=== PATIENT | female | born 1995 | race Caucasian/White ===

== ENCOUNTER → 2017-11-17 | Outpatient (CLI) | payer SELFPAY ==
[~2017-11-17] MED LIST: AMOX250S5 PO; GADOBUTROL 7.5 MMOL/7.5 ML (GADAVIST) VIAL IV ONE; HYDR118S PO
--- NOTE | 2017-11-17 14:46 | Diagnostic Imaging Report ---
PROCEDURE: MRI pelvis with and without contrast. TECHNIQUE: Multiplanar, multisequence MRI of the pelvis was performed with and without contrast. INDICATION: Right lower quadrant mass. COMPARISON: There are no prior studies available for comparison. According to the patient, she has had a prior ultrasound and CT examination at another facility which failed to show any sign of an acute abnormality or of a mass lesion involving the pelvis. FINDINGS: On this study, there is no mass or free fluid collection within the pelvis. The uterus does not appear to be enlarged. The endometrial lining is thickened measuring 13 mm (normal 5 mm or less). This finding is nonspecific however. Correlation with the patient's menstrual cycle would be recommended. There are a few subcentimeter follicles associated with both ovaries. There is no abnormal signal arising from the osseous structures to suggest bone edema or fracture. IMPRESSION: 1. There is no discrete solid mass evident in the right lower quadrant. 2. There is no acute abnormality identified. 3. There are few subcentimeter follicles associated with both ovaries. Dictated by: Dictated on workstation # [id number]
== END ==
LOC: RAD 12:47
PROVIDERS: ATTEND Nurse Practitioner
DX: N83.8 Other noninflammatory disorders of ovary, fallopian tube and broad ligament (principal); R10.31 Right lower quadrant pain
CPT/HCPCS: 72197

== ENCOUNTER 2017-12-07 05:38 | Outpatient (CLI) | payer OTHER ==
[~2017-12-07] VITALS: Ht 152.4 cm; Wt 54.4 kg
[~2017-12-07 05:38] MED LIST changes: -GADOBUTROL 7.5 MMOL/7.5 ML (GADAVIST) VIAL IV ONE
[2017-12-07] MEDS ORDERED: ALPR0.5T7 PO (10:47)
[2017-12-07] MEDS ORDERED: METH5TAB4 PO (10:47)
== END 2017-12-07 10:54 | disposition home or self-care (01) ==
LOC: PREOP 05:38
PROVIDERS: ATTEND Obstetrics & Gynecology
DX: Z01.818 Encounter for other preprocedural examination (principal)

== ENCOUNTER 2017-12-10 08:50 | Day surgery (SDC) | payer OTHER ==
[~2017-12-10] VITALS: Ht 152.4 cm; Wt 54.4 kg
[~2017-12-10 08:50] MED LIST changes: +ALPR0.5T7 PO; +METH5TAB4 PO
--- OUTSIDE RECORDS SUMMARY | 2017-12-10 08:53 | XMS REPORT ---
Author CARYN Cardenas [facility] eClinicalWorks Address Unknown Phone Unavailable Care Team Providers Care Aerial Photograph Interpreter Name Role Phone CARYN WALKER CP Unavailable Allergies No Known Allergies Problems Problem Type Condition Code Onset Dates Condition Status Assessment Visit for TB skin test Z11.1 Active Medications No Known Medications Procedures Procedure Coding System Code Date TB INTRADERMAL TEST CPT-4 80203 Nov 20, 2015 Results No Known Results Summary Purpose eClinicalWorks Submission
--- OUTSIDE RECORDS SUMMARY | 2017-12-10 08:53 | XMS REPORT ---
Author Author SRINIVAS MARC Organization [facility] Address [address] [place] [address] Care Team Providers Care Circus Train Supervisor Name Role Phone SRINIVAS MARC Unavailable PROBLEMS Unknown Problems ALLERGIES Substance Reaction Event Type Date Status SulfADIAZINE Unknown Drug Allergy Aug, Active ENCOUNTERS Encounter Location Date Diagnosis [place] [id number] [phone] Aug, Weight loss R63.4 [place] [id number] [place] [phone] Nov, Visit for TB skin test Z11.1 [place] [id number] [place] [phone] Nov, [place] [id number] [place] [id number] [place] [phone] Nov, IMMUNIZATIONS No Known Immunizations SOCIAL HISTORY Never Assessed REASON FOR VISIT found mass on stomach - In June found a mass on RLQ. It is not painful she states that it is pushing on something that makes it uncomfortable. She works in a f[employer] and states it is making her hips and backs of her thighs hurt. Feels weighted and bloated in the abdomen. Menses are regular and usually is always on time. Now it is messed up and is coming earlier and earlier. She is worried and states there is no way she could be . - Stephanie ANGELES PLAN OF CARE Activity Details Follow Up prn Reason: VITAL SIGNS Height 61.0 in 2016-08-28 Weight 117.0 lbs 2016-08-28 Temperature 98.5 degrees Fahrenheit 2016-08-28 Heart Rate 88 bpm 2016-08-28 Respiratory Rate 18 2016-08-28 BMI 22.10 kg/m2 2016-08-28 Blood pressure systolic 114 mmHg 2016-08-28 Blood pressure diastolic 56 mmHg 2016-08-28 MEDICATIONS Medication Instructions Dosage Frequency Start Date End Date Duration Status Ritalin 10 MG Orally Twice a day 1 tablet 12h Active RESULTS No Results PROCEDURES Procedure Date Ordered Result Body Site COMPLETE CBC W/AUTO DIFF WBC August 28, 2016 COMPREHEN METABOLIC PANEL August 28, 2016 VENIPUNCT, ROUTINE* August 28, 2016 ASSAY THYROID STIM HORMONE August 28, 2016 INSTRUCTIONS MEDICATIONS ADMINISTERED No Known Medications MEDICAL (GENERAL) HISTORY Type Description Date Surgical History Kidney Stone stent place and removed. Surgical History Lithotripsy Hospitalization History Surgery Hospitalization History Animal Bite that causes cellulitis 05/2016
[2017-12-10 09:30] VITALS: BP 121/75
[2017-12-10] MEDS: LACTATED RINGERS 1,000 ML IV PRN ×2 (09:30→12:30)
[2017-12-10 09:50] LABS: BASOPHILS % (AUTO) 1 % (0-10); EOSINOPHILS # (AUTO) 0.2 10^3/uL (0.0-0.3); EOSINOPHILS % (AUTO) 7 % (0-10); HEMATOCRIT 39 % (35-52); HEMOGLOBIN 13.7 G/DL (11.5-16.0); LYMPHOCYTES % (AUTO) 27 % (12-44); MEAN CORPUSCULAR HEMOGLOBIN 32 PG (25-34); MEAN CORPUSCULAR HGB CONC 35 G/DL (32-36); MEAN CORPUSCULAR VOLUME 90 FL (80-99); MEAN PLATELET VOLUME 10.8 FL (7.4-10.4); MONOCYTES # (AUTO) 0.3 X 10^3 (0.0-1.0); MONOCYTES % (AUTO) 8 % (0-12); NEUTROPHILS # (AUTO) 2.1 X 10^3 (1.8-7.8); NEUTROPHILS % (AUTO) 58 % (42-75); PLATELET COUNT 220 10^3/uL (130-400); RED BLOOD COUNT 4.35 10^6/uL (4.35-5.85); RED CELL DISTRIBUTION WIDTH 12.1 % (10.0-14.5); WHITE BLOOD COUNT 3.6 10^3/uL (4.3-11.0)
[2017-12-10] MEDS ORDERED: D5 LR IV SOLUTION 1,000 ML IV SCH (11:58)
[2017-12-10] MEDS ORDERED: HYDROcodone/APAP 5 MG/325 MG (LORTAB) TAB PO PRN (12:00)
[2017-12-10] MEDS ORDERED: KETOROLAC 30 MG/ML VIAL IVP ONE (12:00)
[2017-12-10] MEDS ORDERED: ONDANSETRON 4 MG/2 ML (SDV) Z0FRAN IVP PRN ×2 (12:00→13:45)
--- NOTE | 2017-12-10 12:00 | Discharge Inst-Women's Service ---
Discharge Inst-Women's Serv Depart Medication/Instructions New, Converted or Re-Newed RX: RX on Chart Consults/Follow Up Additional Follow Up: Yes Orders/Referrals DR. Coates in 2-3 weeks Activity Activity: Activity as Tolerated Driving Instructions: No Driving for 1 Week NO SMOKING: NO SMOKING Nothing Inside Vagina: No Douching, No Fontanelle, No Tampons Diet Discharge Diet: No Restrictions Symptoms to Report to : Bleeding Excessive, Pain Increased, Fever Over 101 Degrees F, Vaginal Bleeding Increase, Questions/Concerns For Any Problems or Questions: Contact Your Physician Skin/Wound Care Infection Signs and Symptoms: Increased Redness, Foul Odor of Wound, Increased Drainage, Skin Itchy or Has a Rash, Increased Swelling, Temperature Above 101 F Stitches/Ironside/Dermabond: Dermabond, Care of Stitches Bathing Instructions: RK Joseph DO Dec 10, 2017 12:00
[2017-12-10] MEDS ORDERED: IBUP-1773 PO (12:01)
[2017-12-10] MEDS ORDERED: ACHD5005 PO (12:01)
[2017-12-10] MEDS ORDERED: ROCURONIUM 10 MG/ML 5 ML SYRINGE IV ONE (12:03)
[2017-12-10] MEDS ORDERED: SEVOFLURANE (ULTANE) 15 ML INHAL SOLN ONE ×5 (12:03→13:10)
[2017-12-10] MEDS ORDERED: LIDOCAINE PF 2% 5 ML (XYLOCAINE) VIAL ONE (12:03)
[2017-12-10] MEDS ORDERED: MIDAZOLAM 2 MG/2 ML (VERSED) VIAL ONE (12:03)
[2017-12-10] MEDS ORDERED: fentaNYL INJECTION 100 MCG/2 ML AMP ONE (12:03)
[2017-12-10] MEDS ORDERED: DEXAMETHASONE 10 MG/ML (DECADRON) 1 ML VIAL ONE (12:03)
[2017-12-10] MEDS ORDERED: proPOfol 200 MG/20 ML (DIPRIVAN) VIAL IV ONE (12:03)
[2017-12-10] MEDS ORDERED: ONDANSETRON 4 MG/2 ML (SDV) Z0FRAN ONE (12:03)
[2017-12-10] MEDS ORDERED: BUPIVACAINE 0.25% 30 ML (SENSORCAINE) VIAL ONE (12:14)
[2017-12-10] MEDS ORDERED: NEOSTIGMINE 1 MG/ML 5 ML SYRINGE ONE (13:14)
[2017-12-10] MEDS ORDERED: GLYCOPYRROLATE 0.2 MG/ML (ROBINUL) 2 ML VIAL ONE (13:14)
[2017-12-10] MEDS ORDERED: morphine INJ 10 MG/ML 1ML (SYR OR VIAL) ONE (13:39)
[2017-12-10] MEDS ORDERED: HYDROmorphone 2 MG/ML VIAL (DILAUDID) IV ONE (13:45)
[2017-12-10] MEDS ORDERED: morphine INJ 10 MG/ML 1ML (SYR OR VIAL) IVP ONE ×2 (13:45)
[2017-12-10] MEDS ORDERED: fentaNYL INJECTION 100 MCG/2 ML AMP IVP ONE (13:45)
[2017-12-10 14:20] VITALS: BP 105/74
--- NOTE | 2017-12-10 14:26 | Anesthesia-General Post-Op ---
General Patient Condition Mental Status/LOC: Same as Preop Cardiovascular: Satisfactory Nausea/Vomiting: Absent Respiratory: Satisfactory Pain: Controlled Complications: Absent Post Op Complications Complications None Follow Up Care/Instructions Patient Instructions None needed. Anesthesia/Patient Condition Patient Condition Patient is doing well, no complaints, stable vital signs, no apparent adverse anesthesia problems. No complications reported per nursing. DELMIS MATHEWS CRNA Dec 10, 2017 14:25
[2017-12-10] MEDS ORDERED: HYDROcodone/APAP 5 MG/325 MG (LORTAB) TAB ONE (14:43)
[2017-12-10 14:50] VITALS: BP 101/72
[2017-12-10 15:20] VITALS: BP 97/67
[2017-12-10 15:30] VITALS: BP 97/67
--- NOTE | 2017-12-10 22:22 | OPERATIVE REPORT ---
DATE OF SERVICE: PREOPERATIVE DIAGNOSES: A 22-year-old female with right lower quadrant and right lateral discomfort and abdominal pain. POSTOPERATIVE DIAGNOSES: 1. A 22-year-old female with right lower quadrant and right lateral discomfort and abdominal pain. 2. Peritoneal adhesions. PROCEDURE: Laparoscopic lysis of adhesions. SURGEON: Rk Mcdonnell DO ANESTHESIA: General endotracheal. ESTIMATED BLOOD LOSS: Minimal. URINE OUTPUT: 200 mL. FLUIDS: 1000 mL of lactated Ringer's solution. FINDINGS: Grossly normal appearing uterus, bilateral fallopian tubes, adhesion of the distal ampullary portion of the left fallopian tube to the posterior aspect of the broad ligament at the insertion of the base of the cervix and the uterosacral ligament. There were also adhesions of the greater omentum to the right lateral pelvic sidewall. SPECIMENS SENT: None. INDICATIONS FOR PROCEDURE: This 22-year-old female is a consultation to me from Elizabeth Palma, our nurse practitioner, who had initially seen the patient for an annual examination who had described this ongoing pelvic discomfort and pain. She had undergone ultrasound, CT and MRI, by the time she was sent to my consultation. Once I saw the patient, we are able to feel a nodularity almost like a muscle spasm that was in the right abdomen, especially on pelvic exam; however, otherwise I was not able to appreciate any fascial defect or any abdominal wall defect. I discussed with the patient the potential for endometriosis or adhesions; however, she has not had previous abdominal surgery, she had had a right ureteral stent placement. Risk of laparoscopy was reviewed with the patient; however, more definitive look could be taken this way. Risks of bleeding, infection, damage to surrounding structures including but not limited to bowel, bladder, ureter, kidneys, postoperative and preoperative expectations, postop recovery timeframe, risk from anesthesia and even were all discussed. After everything was discussed and the patient's questions were answered, she was agreeable to proceed with laparoscopy and she wants an answer. Consent was obtained. The patient was then taken to the operating room. OPERATIVE REPORT IN DETAIL: Once in the operating room, general anesthesia was found to be adequate, placed in dorsal lithotomy position and prepped and draped in normal sterile fashion. A Camacho catheter was placed in sterile technique. A weighted speculum inserted to the patient's vagina. A right angle retractor was used to visualize the cervix, which was grasped at 12 o'clock position using long Allis clamp. I then gently sound the uterine cavity and found to be 8 cm and then gently dilated the cervix using Hegar dilators to a maximum dilatation of approximately 4 mm, at which point I placed the Kronner uterine manipulator into the uterine cavity deploying the balloon and excellent uterine manipulation is appreciated on bimanual exam at that point. All other instruments were removed from the patient's vagina at that point. Change of gloves was performed and I took my attention to the abdomen where infraumbilically I infiltrate the area using 0.25% Marcaine to make a 5 mm incision, directed Veress needle through the incision until intraperitoneal placement was confirmed using saline drop test. I opening pressure of 3 mmHg was noted. I proceeded to maximum pressure of 15 mmHg, at which point I removed the Veress needle and introduced a 5 mm blunt trocar. Once this was in place, I am able to confirm intraperitoneal placement using the laparoscope. I had the patient placed in steep Trendelenburg and made to visualize all of the anatomy described in my findings above. I take down the adhesions after placing the suprapubic trocar in a similar fashion with a 5 mm incision a 5 mm trocar. Once the adhesions were taken down, using the EndoShears, hemostasis was achieved using the cautery from the EndoShears. I then copiously irrigated the pelvis with normal saline and the upper abdomen using normal saline. There was active bleeding noted from any of my dissection planes. I then removed the suprapubic trocar under direct visualization of the laparoscope. The infraumbilical trocar was left in place to release insufflation and to introduce 10 mL of 0.25% Marcaine for postoperative pain management. I then removed this trocar as well and the skin reapproximated using Dermabond. A Kronner uterine manipulator and Camacho catheter were removed. The patient tolerated the procedure well and sent to recovery in stable condition. Lap and sponge counts were correct at the end of the procedure. Instrument counts were correct as well. Job ID: [id number] DocumentID: [id number] Dictated Date: 12/10/2017 13:42:21 Calciner Operator Helper Date: 12/10/2017 22:22:12 Dictated By: RK MCDONNELL DO
== END 2017-12-10 15:30 | disposition home or self-care (01) ==
LOC: SDC 08:50
PROVIDERS: ATTEND Obstetrics & Gynecology
DX: N73.6 Female pelvic peritoneal adhesions (postinfective) (principal); Z11.2 Encounter for screening for other bacterial diseases; F32.9 Major depressive disorder, single episode, unspecified; F17.210 Nicotine dependence, cigarettes, uncomplicated; Z87.442 Personal history of urinary calculi
CPT/HCPCS: 36415; 84703; 85025; 86850; 86900; 86901; 87081; 94664

== ENCOUNTER 2019-01-07 16:36 | Emergency (ER) | payer MEDICAID, OTHER ==
[~2019-01-07] VITALS: Ht 158.7 cm; Wt 59.4 kg
[~2019-01-07 16:36] MED LIST changes: +ACHD5005 PO; +IBUP-1773 PO
--- NOTE | 2019-01-07 17:10 | ED GI ---
General Chief Complaint: Abdominal/GI Problems Stated Complaint: NAUSEA; ABD PAIN Nursing Triage Note: Pt presents to ED per POV reporting 8 weeks and developing nausea this a.m. Pt reports she has not vomited and wished she could. Pt had a diarrhea episode just CAN RUNNER. Pt has not had any Rx from [facility] for morning sickness. Sepsis Screen: No Definite Risk Source of Information: Patient, Family Exam Limitations: No Limitations History of Present Illness Date Seen by Provider: Jan 07, 2019 Time Seen by Provider: 16:55 Initial Comments Stomach upset and nausea without vomiting, onset 10 am today. Archbold fine this morning and yesterday, no recent illness or sick contacts. Normal BM's without constipation. No fever or chills. No lower abdominal or pelvic pain or cramping. No vaginal bleeding. @ 8 wks Allergies and Home Medications Allergies Coded Allergies: Sulfa (Sulfonamides) (Unverified Allergy, RASH,SOB, 10/29/09) Home Medications Vit W-Ca,Fe,FA(<1 mg) 1 Each Tablet, 1 EACH PO DAILY, (Reported) Patient Home Medication List Home Medication List Reviewed: Yes Review of Systems Review of Systems Constitutional: see HPI, malaise EENTM: No Ear Pain, No Nose Pain, No Throat Pain Respiratory: No Symptoms Reported; Denies Cough, Denies Shortness of Air Cardiovascular: No Symptoms Reported; Denies Chest Pain Gastrointestinal: Abdominal Pain (upper abdomen, upset stomach); Denies Constipated, Denies Diarrhea, Denies Difficulty Swallowing; Nausea; Denies Vomiting Genitourinary: Denies Burning, Denies Discharge, Denies Pain Musculoskeletal: No back pain, No joint pain Skin: No change in color, No rash Past Ywzjohz-Ucbpbn-Wyvfas Hx Past Med/Social Hx: Reviewed Nursing Past Med/Soc Hx Patient Social History Alcohol Beverage of Choice: Beer, Whiskey Type Used: Cigarettes Recent Foreign Travel: No Contact w/Someone Who Travel: No Recent Infectious Disease Expo: No Recent Hopitalizations: No Seasonal Allergies Seasonal Allergies: Yes Past Medical History Tonsillectomy : Yes Expected Date of Delivery: Aug 15, 2019 Hx : 1 Hx Para: 0 Reproductive Disorders: Yes (RLQ pain, CPP) Sexually Transmitted Disease: No Kidney Stones Anxiety, Depression Physical Exam Vital Signs Vital Signs - First Documented 01/07/19 16:45 Temp 36.7 Pulse 113 Resp 20 B/P (MAP) 122/69 (86) Pulse Ox 97 O2 Delivery Room Air Capillary Refill : Less Than 3 Seconds Height/Weight/BMI Height: 5'0.00" Weight: 120lbs. 0.0oz. 54.029982qs; 23.00 BMI Method: General Appearance: WD/WN, no apparent distress HEENT: normal ENT inspection, pharynx normal Respiratory: chest non-tender, lungs clear, normal breath sounds Cardiovascular: regular rate, rhythm, no edema, no gallop Gastrointestinal: normal bowel sounds, soft, no organomegaly, no pulsatile mass; No distended, No guarding, No rebound; tenderness (mild epigastric); No hepatomegaly, No spleenomegaly Neurologic/Psychiatric: alert, normal mood/affect Skin: normal color, warm/dry Progress/Results/Core Measures Results/Orders My Orders Orders - DARYA POWERS DO Antacid Suspension (Mylanta Suspension (01/07/19 17:15) Medications Given in ED Current Medications Medications Dose Ordered Sig/Gibran Route Start Time Stop Time Status Last Admin Dose Admin Al Hydrox/Mg Hydrox/Simethicone 30 ml ONCE ONCE PO 01/07/19 17:15 01/07/19 17:16 DC 01/07/19 17:13 30 ML Vital Signs/I&O 01/07/19 16:45 Temp 36.7 Pulse 113 Resp 20 B/P (MAP) 122/69 (86) Pulse Ox 97 O2 Delivery Room Air Blood Pressure Mean: 86 POS Progress Progress Note : Progress Note feeling much better after maalox and ice chips. Ready to go home. Departure Impression Primary Impression: Epigastric abdominal pain Additional Impression: Nausea/vomiting in Disposition: 01 HOME, SELF-CARE Condition: Improved Departure-Patient Inst. Referrals: SELF,PATI GOODRICH (PCP/Family) Primary Care Physician Patient Instructions: Nausea and Vomiting of (DC) DARYA POWERS DO Jan 07, 2019 17:10 POS
[2019-01-07] MEDS ORDERED: VNL37.5T (17:11)
[2019-01-07] MEDS ORDERED: PREN-8 PO (17:11)
[2019-01-07] MEDS ORDERED: ANTACID SUSP 30 ML UDC (MYLANTA) PO ONE (17:15)
[2019-01-07 18:00] VITALS: BP 120/64
--- OUTSIDE RECORDS SUMMARY | 2019-02-02 15:14 | XMS REPORT | Continuity of Care Document ---
Author Organization Unknown Address Unknown Phone Unavailable Allergies There is no data. Medications There is no data. Problems There is no data. Procedures There is no data. Results Test Result Range CULTURE, URINE - 10/05/18 14:02 CULTURE, URINE, ROUTINE SEE NOTE NRG CBC - 12/07/18 11:16 WHITE BLOOD CELL COUNT 4.4 Thousand/uL 3 .8-10.8 RED BLOOD CELL COUNT 4.13 Million/uL 3.8 0-5.10 HEMOGLOBIN 12.8 g/dL 11.7-15.5 HEMATOCRIT 38.8 % 35.0-45.0 MCV 93.9 fL 80.0-100.0 MCH 31.0 pg 27.0-33.0 MCHC 33.0 g/dL 32.0-36.0 RDW 12.0 % 11.0-15.0 PLATELET COUNT 202 Thousand/uL 140-400 MPV 11.2 fL 7.5-12.5 ABSOLUTE NEUTROPHILS 3124 cells/uL 1500- 7800 ABSOLUTE LYMPHOCYTES 880 cells/uL 850-39 00 ABSOLUTE MONOCYTES 387 cells/uL 200-950 ABSOLUTE EOSINOPHILS 0 cells/uL 15-500 ABSOLUTE BASOPHILS 9 cells/uL 0-200 NEUTROPHILS 71 % NRG LYMPHOCYTES 20.0 % NRG MONOCYTES 8.8 % NRG EOSINOPHILS 0.0 % NRG BASOPHILS 0.2 % NRG TEST, SERUM (QUAL) - 12/07/18 11:16 HCG, TOTAL, QL POSITIVE See Note: Encounters ACCT No. Visit Date/Time Discharge Status Pt. Type Provider Facility Loc./Unit Complaint [id number] 11/20/2018 16:05:00 11/20/2018 23:59:5 9 CLS Outpatient SELF, [facility] [id number] 12/07/2018 10:00:00 Document Registration [id number] 10/05/2018 13:20:00 Document Registration
== END 2019-01-07 18:00 | disposition home or self-care (01) ==
LOC: EDUNIT# 16:36 → ER FS 16:38
DX: O21.0 Mild hyperemesis gravidarum (principal); O26.891 Other specified pregnancy related conditions, first trimester; R10.13 Epigastric pain; O99.341 Other mental disorders complicating pregnancy, first trimester; F41.9 Anxiety disorder, unspecified; F32.9 Major depressive disorder, single episode, unspecified; Z90.89 Acquired absence of other organs; Z88.2 Allergy status to sulfonamides; Z3A.08 8 weeks gestation of pregnancy
CPT/HCPCS: 99283

== ENCOUNTER 2019-01-11 08:20 | Emergency (ER) | payer MEDICAID ==
[~2019-01-11] VITALS: Ht 154.9 cm; Wt 58.3 kg
[~2019-01-11 08:20] MED LIST changes: +PREN-8 PO; +VNL37.5T
--- NOTE | 2019-01-11 09:24 | ED GU-Female ---
General Chief Complaint: RING SPINNER Stated Complaint: VAGINAL BLEEDING (9 WKS PREG) Nursing Triage Note: Patient presents to the ED with the c/o vaginal bleeding. She reports that she is 9 weeks . She reports a small amount of pinkish/red blood noted on the tissue paper after wiping. She denies any pain or cramping at this time. Patient states she was seen in the ED on Thursday for nausea and vomiting and just got over that illness Thursday. Nursing Sepsis Screen: No Definite Risk Source: patient Exam Limitations: no limitations History of Present Illness Date Seen by Provider: Jan 11, 2019 Time Seen by Provider: 08:50 Initial Comments Here with report of small amount of vaginal bleeding yesterday and noted more horace blood this morning when she wiped. Seems to settle down now. Believes that she is approximately 9 weeks . She has not had ultrasound yet. Has established an appointment for OB with Dr. Coates. Recently just got over nausea, vomiting and diarrhea illness a few days ago. States she is feeling a little better today. She is concerned about the bleeding. Denies current nausea and vomiting. Denies fevers. Last sexual activity was at time of conception. Timing/Duration: yesterday, changing over time Severity/Quality: mild Location: vaginal Radiation: none Activities at Onset: none Sexual Damar History: not active, greater than 2 months ago Modifying Factors: Improves With Resting; Worsens With Urinating Associated Symptoms: No abdominal pain, No dysuria, No fever/chills, No lower back pain, No nausea/vomiting, No urinary frequency Allergies and Home Medications Allergies Coded Allergies: Sulfa (Sulfonamides) (Unverified Allergy, RASH,SOB, 10/29/09) Home Medications Vit W-Ca,Fe,FA(<1 mg) 1 Each Tablet, 1 EACH PO DAILY, (Reported) Patient Home Medication List Home Medication List Reviewed: Yes Review of Systems Review of Systems Constitutional: see HPI; No chills, No fever Respiratory: no symptoms reported Cardiovascular: no symptoms reported Gastrointestinal: no symptoms reported Genitourinary: see HPI : Yes Expected Date of Delivery: Aug 15, 2019 Musculoskeletal: no symptoms reported Skin: no symptoms reported Psychiatric/Neurological: No Symptoms Reported Past Uberzww-Ycgwms-Qbpbzj Hx Past Med/Social Hx: Reviewed Nursing Past Med/Soc Hx Patient Social History Alcohol Use: Denies Use Number of Drinks Today: GG Alcohol Beverage of Choice: Whiskey Recreational Drug Use: No Smoking Status: Former Smoker Type Used: Cigarettes Former Smoker, Quit: Dec 10, 2018 Recent Foreign Travel: No Contact w/Someone Who Travel: No Recent Infectious Disease Expo: No Recent Hopitalizations: No Physical Abuse: No Sexual Abuse: No Mistreated: No Fear: No Immunizations Up To Date Date of Influenza Vaccine: Nov 09, 2018 Seasonal Allergies Seasonal Allergies: Yes Past Medical History Surgeries: Yes (JJ stent placed and removed, wisdom teeth) Tonsillectomy Respiratory: No Cardiac: No (a murmur as an infant) Neurological: No : Yes (9 weeks) Expected Date of Delivery: Aug 15, 2019 Hx : 1 Reproductive Disorders: Yes (RLQ pain, CPP) Sexually Transmitted Disease: No Genitourinary: No Kidney Stones Gastrointestinal: No Musculoskeletal: No Endocrine: No HEENT: No Cancer: No Psychosocial: Yes Anxiety, Depression Integumentary: No Blood Disorders: No Family Medical History Reviewed Nursing Family Hx Physical Exam Vital Signs Vital Signs - First Documented 01/11/19 09:02 Temp 36.7 Pulse 86 Resp 16 B/P (MAP) 113/79 (90) Pulse Ox 97 O2 Delivery Room Air Capillary Refill : Less Than 3 Seconds Height, Weight, BMI Height: 5'0.00" Weight: 120lbs. 0.0oz. 54.488101vq; 24.00 BMI Method: General Appearance: WD/WN, no apparent distress Cardiovascular: regular rate, rhythm, no murmur Respiratory: lungs clear, normal breath sounds Gastrointestinal: non tender, soft Pelvic: normal external exam, discharge (pink blood sugar to swabs and then discharge), tender w/ cervical motion; No tender adnexa Back: normal inspection, no CVA tenderness, no vertebral tenderness Neurologic/Psychiatric: alert, oriented x 3 Skin: normal color, warm/dry Progress/Results/Core Measures Suspected Sepsis Recent Fever Within 48 Hours: No Infection Criteria Present: None New/Unexplained Altered Menta: No Sepsis Screen: No Definite Risk SIRS Temperature: Pulse: 86 Respiratory Rate: 16 Blood Pressure 113 /79 Mean: 90 Results/Orders Lab Results Laboratory Tests Test 01/11/19 08:33 01/11/19 09:00 01/11/19 09:15 Range/Units Urine Color YELLOW Urine Clarity CLEAR Urine pH 7.0 5-9 Urine Specific [place] 1.015 L 1.016-1.022 Urine Protein NEGATIVE NEGATIVE Urine Glucose (UA) NEGATIVE NEGATIVE Urine Ketones NEGATIVE NEGATIVE Urine Nitrite NEGATIVE NEGATIVE Urine Bilirubin NEGATIVE NEGATIVE Urine Urobilinogen 0.2 < = 1.0 MG/DL Urine Leukocyte Esterase NEGATIVE NEGATIVE Urine RBC (Auto) 1+ H NEGATIVE Urine RBC 0-2 /HPF Urine WBC 0-2 /HPF Urine Squamous Epithelial Cells 10-25 H /HPF Urine Crystals NONE /LPF Urine Bacteria NEGATIVE /HPF Urine Casts NONE /LPF Urine Mucus SMALL H /LPF Urine Culture Indicated NO Human Chorionic Gonadotropin, Quant [id number] H <5 MIU/ML Micro Results Microbiology 01/11/19 Genital Culture, Resulted Pending 01/11/19 HUBER Preparation - Final, Resulted My Orders Orders - JESSICA ZARATE MD Hcg,Quantitative (01/11/19 08:43) Neisseria Gonorrhea Swab (01/11/19 08:43) Genital Culture (01/11/19 08:43) Huber Prep (01/11/19 08:43) Ua Culture If Indicated (01/11/19 08:43) Chlamydia Trachomatis Swab (01/11/19 08:43) Us Ob Transvaginal [id number] (01/11/19 08:57) Vital Signs/I&O 01/11/19 09:02 Temp 36.7 Pulse 86 Resp 16 B/P (MAP) 113/79 (90) Pulse Ox 97 O2 Delivery Room Air Capillary Refill : Less Than 3 Seconds Blood Pressure Mean: 90 POS Progress Note : Progress Note Seen and evaluated. Labs, pelvic exam and ultrasound ordered. Monitor patient. 1030: Ultrasounds findings concerning for miscarriage. This was discussed with the patient. Pending labs. 1043: Quant is 29,000. Should be noted at this level. Likely pending miscarriage and this was discussed. Discharged home with return precautions. Patient and family verbalized understanding instructions and agreement with plan. I will send a copy of the chart to Dr. Coates Diagnostic Imaging Diagonstic Imaging: Ultrasound Plain Films/CT/US/NM/MRI: pelvis Comments Preliminary report shows concerns for blighted ovum. No body or heart tones noted. [facility]. POS [place], [place] POS NAME: XOCHITL LEE Lily [facility] REC#: [id number] PT STATUS: REG ER : 1995 PHYSICIAN: JESSICA ZARATE MD ADMIT DATE: 01/11/19/ER FS Draft POSDate of Exam:01/11/19 OB TRANSVAGINAL [id number] INDICATION: Vaginal bleeding. FINDINGS: There is an intrauterine gestational sac present within the uterine cavity which is mildly irregular in shape. There is a subchorionic fluid collection measuring approximately 2 x 1.5 x 0.6 cm. No evidence of a definite pole or a definite yolk sac. There is some debris within the amniotic fluid. The amniotic sac measures approximately 1.8 cm, consistent with a 6 week 4 day gestation. There are no adnexal masses. No free fluid in the pelvis. IMPRESSION: The findings are consistent with an intrauterine gestational sac which is irregular in appearance without evidence of a pole. This is likely a blighted ovum. Clinical correlation and followup are recommended. Dictated on workstation # [id number] Dict: 01/11/19 1103 Trans: 01/11/19 1108 [id number] Interpreted by: EDD JIN MD Electronically signed by: Departure Impression Primary Impression: Blighted ovum Additional Impression: Spontaneous miscarriage Disposition: 01 HOME, SELF-CARE Condition: Stable Departure-Patient Inst. Referrals: PATI WARNER MD (PCP/Family) Primary Care Physician Patient Instructions: Miscarriage (DC) Add. Discharge Instructions: All discharge instructions reviewed with patient and/or family. Voiced understanding. Follow-up with Dr. Coates for recheck and further evaluation. Return for worse pain, fever, vomiting, persistent vaginal bleeding greater than 2 pads per hour for more than 2 hours or other concerns as needed. You may take Tylenol/acetaminophen 1000 mg every 6-8 hours as needed for pain. You may take ibuprofen 600 mg every 8 hours as needed for pain. Drink plenty of fluids. Copy Copies To 1: RK COATES TIMOTHY D MD Jan 11, 2019 09:24 POS
[2019-01-11 10:14] LABS: CLARITY,URINE CLEAR; COLOR,URINE YELLOW
[2019-01-11 10:15] LABS: BACTERIA,URINE NEGATIVE /HPF; BILIRUBIN,URINE NEGATIVE (NEGATIVE); GLUCOSE, URINE (UA) NEGATIVE (NEGATIVE); KETONES,URINE NEGATIVE (NEGATIVE); LEUKOCYTE ESTERASE ,URINE NEGATIVE (NEGATIVE); NITRITE,URINE NEGATIVE (NEGATIVE); PROTEIN,URINE NEGATIVE (NEGATIVE); RBC,URINE 0-2 /HPF; WBC,URINE 0-2 /HPF
[2019-01-11 10:53] VITALS: BP 108/65
--- NOTE | 2019-01-11 11:08 | Diagnostic Imaging Report ---
INDICATION: Vaginal bleeding. FINDINGS: There is an intrauterine gestational sac present within the uterine cavity which is mildly irregular in shape. There is a subchorionic fluid collection measuring approximately 2 x 1.5 x 0.6 cm. No evidence of a definite pole or a definite yolk sac. There is some debris within the amniotic fluid. The amniotic sac measures approximately 1.8 cm, consistent with a 6 week 4 day gestation. There are no adnexal masses. No free fluid in the pelvis. IMPRESSION: The findings are consistent with an intrauterine gestational sac which is irregular in appearance without evidence of a pole. This is likely a blighted ovum. Clinical correlation and followup are recommended. Dictated by: Dictated on workstation # [id number]
--- OUTSIDE RECORDS SUMMARY | 2019-02-05 05:33 | XMS REPORT | Continuity of Care Document ---
[...] Status Pt. Type Provider Facility Loc./Unit Complaint [id number] 11/20/2018 16:05:00 11/20/2018 23:59:5 9 CLS Outpatient SELF, [facility] [id number] 12/07/2018 10:00:00 Document Registration [id number] 10/05/2018 13:20:00 Document Registration
== END 2019-01-11 10:53 | disposition home or self-care (01) ==
LOC: EDUNIT# 08:20 → ER FS 08:21
DX: O03.9 Complete or unspecified spontaneous abortion without complication (principal); O02.0 Blighted ovum and nonhydatidiform mole; F41.9 Anxiety disorder, unspecified; F32.9 Major depressive disorder, single episode, unspecified; Z3A.09 9 weeks gestation of pregnancy; Z88.2 Allergy status to sulfonamides; Z87.891 Personal history of nicotine dependence; Z90.89 Acquired absence of other organs; Z87.442 Personal history of urinary calculi
CPT/HCPCS: 36415; 76817; 81000; 84702; 87070; 87077; 87205; 87220; 87491; 87591

== ENCOUNTER → 2019-01-13 | Outpatient (CLI) | payer MEDICAID | LOC: LAB FS 14:50 | PROVIDERS: ATTEND Obstetrics & Gynecology | DX: O20.0 Threatened abortion (principal) | CPT/HCPCS: 36415; 84702 ==

== ENCOUNTER 2019-01-21 11:36 | Outpatient (RCR) | payer MEDICAID | END 2019-04-21 | disposition home or self-care (01) | LOC: LAB FS 11:36 | PROVIDERS: ATTEND Obstetrics & Gynecology | DX: O02.1 Missed abortion (principal) | CPT/HCPCS: 36415; 84702 ==

== ENCOUNTER → 2019-01-29 | Outpatient (CLI) | payer MEDICAID | LOC: LAB FS 10:15 | PROVIDERS: ATTEND Obstetrics & Gynecology | DX: O02.1 Missed abortion (principal) | CPT/HCPCS: 36415; 84702 ==

== ENCOUNTER 2019-02-04 17:35 | Outpatient (RCR) | payer MEDICAID | END 2019-05-05 | disposition home or self-care (01) | LOC: LAB 17:35 | PROVIDERS: ATTEND Family Medicine | DX: Z01.89 Encounter for other specified special examinations (principal) | CPT/HCPCS: 36415; 84702 ==

== ENCOUNTER → 2019-08-17 | Outpatient (CLI) | payer MEDICAID ==
[2019-08-17 18:28] LABS: BACTERIA,URINE FEW /HPF; BILIRUBIN,URINE NEGATIVE (NEGATIVE); CLARITY,URINE CLEAR; COLOR,URINE YELLOW; GLUCOSE, URINE (UA) NEGATIVE (NEGATIVE); KETONES,URINE 1+ (NEGATIVE); LEUKOCYTE ESTERASE ,URINE NEGATIVE (NEGATIVE); NITRITE,URINE NEGATIVE (NEGATIVE); PROTEIN,URINE NEGATIVE (NEGATIVE)
[2019-08-17 18:29] LABS: BASOPHILS % (AUTO) 1 % (0-10); EOSINOPHILS % (AUTO) 2 % (0-10); HEMATOCRIT 36 % (35-52); HEMOGLOBIN 12.7 G/DL (11.5-16.0); LYMPHOCYTES # (AUTO) 1.3 X 10^3 (1.0-4.0); LYMPHOCYTES % (AUTO) 21 % (12-44); MEAN CORPUSCULAR HEMOGLOBIN 32 PG (25-34); MEAN CORPUSCULAR HGB CONC 35 G/DL (32-36); MEAN CORPUSCULAR VOLUME 90 FL (80-99); MEAN PLATELET VOLUME 10.6 FL (7.4-10.4); MONOCYTES % (AUTO) 5 % (0-12); NEUTROPHILS # (AUTO) 4.4 X 10^3 (1.8-7.8); NEUTROPHILS % (AUTO) 71 % (42-75); PLATELET COUNT 201 10^3/uL (130-400); RED CELL DISTRIBUTION WIDTH 11.8 % (10.0-14.5); WHITE BLOOD COUNT 6.3 10^3/uL (4.3-11.0)
[2019-08-17 18:30] LABS: EOSINOPHILS # (AUTO) 0.1 10^3/uL (0.0-0.3); MONOCYTES # (AUTO) 0.3 X 10^3 (0.0-1.0)
[2019-08-18 22:18] LABS: HEPATITIS C ANTIBODY C Non-Reactive (Non-Reactive)
== END ==
LOC: LAB FS 16:27
PROVIDERS: ATTEND Obstetrics & Gynecology
DX: Z36.89 Encounter for other specified antenatal screening (principal)
CPT/HCPCS: 36415; 80055; 81000; 84144; 84702; 85025; 86703; 86803; 87088

== ENCOUNTER 2019-08-21 21:00 | Emergency (ER) | payer MEDICAID ==
[~2019-08-21] VITALS: Ht 154.9 cm; Wt 55.4 kg
--- OUTSIDE RECORDS SUMMARY | 2019-08-21 21:09 | XMS REPORT ---
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 Name Role Phone MOSHE Murphy Unavailable PROBLEMS Type Condition ICD9-CM Code VER65-AK Code Onset Dates Condition S tatus SNOMED Code Problem Cigarette nicotine dependence, uncomplicated F1 7.210 May, Active 653387140 Problem Environmental allergies Z91.09 11 Oct, 2012 Act kristyn 521602947 Problem Allergic rhinitis J30.9 11 Dec, 2010 Active 75928007 Problem ADHD (attention deficit hyperactivity disorder) F9 0.9 Active 525456312 Problem ORI (generalized anxiety disorder) F41.1 Active 48109320 Problem ADHD (attention deficit hyperactivity disorder), combi shreya type F90.2 Active 59591793 Problem Moderately severe depression F32.2 A ctive 863026581 Problem Anxiety F41.9 Active 41410503 Problem Vitamin D deficiency E55.9 Active 09891718 Problem Depression F32.9 16 Feb, 2014 Active 107215 005 Problem Major depressive disorder, recurrent, se mauricio without psychotic behavior F33.2 Active 11278706 Problem Seasonal allergic rhinitis due to pollen J30.1 Active 00200613 Problem Frontal sinusitis, unspecified chronicity J32.1 Active 52282505 Problem Frontal sinusitis, unspecified chronicity J32.1 Active 32233266 ALLERGIES No Information ENCOUNTERS Encounter Location Date Diagnosis [address] [id number] [place] [address] Aug, [address] [id number] [place] [address] Jul, Encounter for test , result unknown Z32.00 [facility] [place] [address] [id number] [place] [address] Jul, Vitamin D deficiency E55.9 [facility] [place] [facility] [address] [id number] [place] [address] Jul, Vitamin D deficiency E55.9 [facility] [place] [facility] [address] [id number] [place] [address] June, Fever, unspecified fever cau se R50.9 [facility] [place] [facility] [address] [id number] [place] [address] June, [facility] [place] [facility] [address] [id number] [place] [address] June, [facility] [place] [facility] [address] [id number] [place] [address] June, [facility] [place] [facility] [address] [id number] [place] [address] June, Moderately severe depression F32.2 and Vitamin D deficiency E55.9 [facility] [place] [facility] [address] [id number] [place] [address] June, Major depressive disorder, r ecurrent, severe without psychotic behavior F33.2 [facility] [place] [facility] [address] [id number], [place] [address] May, Major depressive disorder, r ecurrent, severe without psychotic behavior F33.2 [facility] [address] [facility] [id number] [address] [place] [address] Apr, Seasonal allergic rhinitis d ue to pollen J30.1 [facility] [place] [facility] [address] [id number] [place] [address] Nov, Major depressive disorder, r ecurrent, severe without psychotic behavior F33.2 [facility] [place] [facility] [address] [id number] [place] [address] Nov, ADHD (attention deficit hype ractivity disorder) F90.9 and Encounter for related examination in first trimester Z34.91 [facility] [address] [facility] [id number] [address] [place] [address] Nov, Frontal sinusitis, unspecifi ed chronicity J32.1 [facility] [address] [id number] [place] [address] Oct, [facility] [address] [id number] [place] [address] Oct, [facility] [address] [id number] [place] [address] Oct, Seasonal allergic rhinitis d ue to pollen J30.1 [facility] [address] [id number] [place] [address] Sep, UTI symptoms R39.9 and Acute cystitis without hematuria N30.00 [facility] [address] [id number] [place] [address] Sep, [facility] [address] [id number] [place] [address] Sep, [facility] [address] [id number] [place] [address] Aug, [facility] [address] [id number], [place] [address] Aug, [facility] [address] [id number] [place] [address] Aug, ADHD (attention deficit hype ractivity disorder), combined type F90.2 and Major depressive disorder, recurrent, severe without psychotic behavior F33.2 [facility] [address] [id number] [place] [address] Jul, [facility] [address] [id number] [place] [address] June, Major depressive disorder, r ecurrent, severe without psychotic behavior F33.2 [facility] [address] [id number] [place] [address] May, ORI (generalized anxiety dis order) F41.1 ; Major depressive disorder, recurrent, severe without psychotic behavior F33.2 and ADHD (attention deficit hyperactivity disorder), combined type F90.[address] [id number] [place] [address] May, [address] [id number] [place] [address] Apr, ADHD (attention deficit hype ractivity disorder) F90.9 and Anxiety F41.[address] [id number] [place] [address] Mar, [address] [id number], [place] [address] Mar, [address] [id number] [place] [address] Mar, [facility] [address] [place] [address] [facility] [id number] [place] [address] Mar, [facility] [address] [facility] [id number] [address] [place] [address] Jan, [facility] [address] [facility] [id number] [address] [place] [address] Jan, [facility] [address] [facility] [id number] [address] [place] [address] Jan, [facility] [address] [facility] [id number] [address] [place] [address] Feb, [facility] [address] [facility] [id number] [address] [place] [address] Aug, Weight loss R63.4 [facility] [address] [facility] [id number] [address] [place] [address] Nov, Visit for TB skin test Z11.1 [facility] [address] [facility] [id number] [address] [place] [address] Nov, [facility] [address] [place] [id number] [address] [place] [address] Nov, IMMUNIZATIONS No Known Immunizations SOCIAL HISTORY Never Assessed REASON FOR VISIT PLAN OF CARE VITAL SIGNS MEDICATIONS Unknown Medications RESULTS No Results PROCEDURES No Known procedures INSTRUCTIONS MEDICATIONS ADMINISTERED No Known Medications MEDICAL (GENERAL) HISTORY Type Description Date Medical History ADHD (attention deficit hyperactivity di sorder) Medical History Anxiety Medical History Depression Medical History Allergic rhinitis Medical History Cigarette nicotine dependence, uncomplic ated Medical History ORI (generalized anxiety disorder) Medical History Major depressive disorder, r ecurrent, severe without psychotic behavior Medical History Seasonal allergic rhinitis due to pollen Surgical History Kidney Stone stent place and removed. Surgical History Lithotripsy Hospitalization History Surgery Hospitalization History Animal Bite that causes cellulitis 0 05/2016
--- OUTSIDE RECORDS SUMMARY | 2019-08-21 21:09 | XMS REPORT | Continuity of Care Document ---
Author Organization Unknown Address Unknown Phone Unavailable Allergies Active Description Code Type Severity Reaction Onset Reported/Identified Relationship to Patient Clinical Status Yes Sulfa (Sulfonamide Antibiotics) [id number] Drug Allergy Unknown RASH,SOB 10/29/2009 Medications There is no data. Problems Date Dx Coded Attending Type Code Diagnosis Diagnosed By 11/19/2017 RAYA DAVIS W PREMIUM REPRESENTATIVE Ot N83.8 OTH NONINFLAMMATORY DISORD OF OVARY, FAL 11/19/2017 QUICKRAYA W PREMIUM REPRESENTATIVE Ot R10.3 1 RIGHT LOWER QUADRANT PAIN 11/24/2017 QUICKRAYA PREMIUM REPRESENTATIVE Ot N83.8 OTH NONINFLAMMATORY DISORD OF OVARY, FAL 11/24/2017 QUICK RAYA W PREMIUM REPRESENTATIVE Ot R10.3 1 RIGHT LOWER QUADRANT PAIN 11/24/2017 QUICK, RAYA W PREMIUM REPRESENTATIVE Ot N83.8 OTH NONINFLAMMATORY DISORD OF OVARY, FAL 11/24/2017 QUICK, RAYA W PREMIUM REPRESENTATIVE Ot R10.3 1 RIGHT LOWER QUADRANT PAIN 11/24/2017 QUICK, RAYA W PREMIUM REPRESENTATIVE Ot N83.8 OTH NONINFLAMMATORY DISORD OF OVARY, FAL 11/24/2017 QUICK, RAYA W PREMIUM REPRESENTATIVE Ot R10.3 1 RIGHT LOWER QUADRANT PAIN 12/07/2017 RK MCDONNELL DO Ot Z01.818 ENCOUNTER FOR OTHER PREPROCEDURAL EXAMIN 12/08/2017 RK MCDONNELL DO Ot Z01.818 ENCOUNTER FOR OTHER PREPROCEDURAL EXAMIN 12/08/2017 QUICK, RAYA W PREMIUM REPRESENTATIVE Ot N83.8 OTH NONINFLAMMATORY DISORD OF OVARY, FAL 12/08/2017 QUICK RAYA W PREMIUM REPRESENTATIVE Ot R10.3 1 RIGHT LOWER QUADRANT PAIN 12/08/2017 QUICK, RAYA W PREMIUM REPRESENTATIVE Ot N83.8 OTH NONINFLAMMATORY DISORD OF OVARY, FAL 12/08/2017 QUICK RAYA W PREMIUM REPRESENTATIVE Ot R10.3 1 RIGHT LOWER QUADRANT PAIN 12/08/2017 QUICK, RAYA W PREMIUM REPRESENTATIVE Ot N83.8 OTH NONINFLAMMATORY DISORD OF OVARY, FAL 12/08/2017 RAYA DAVIS PREMIUM REPRESENTATIVE Ot R10.3 1 RIGHT LOWER QUADRANT PAIN 12/10/2017 FENECH DO, RK S Ot F17.210 NICOTINE DEPENDENCE, CIGARETTES, UNCOMPL 12/10/2017 FENECH DO, RK S Ot F32.9 MAJOR DEPRESSIVE DISORDER, SINGLE EPISOD 12/10/2017 FENECH DO, RK S Ot N73.6 FEMALE PELVIC PERITONEAL ADHESIONS (POST 12/10/2017 FENECH DO, RK S Ot Z11.2 ENCOUNTER FOR SCREENING FOR OTHER BACTER 12/10/2017 FENECH DO, RK S Ot Z87.442 PERSONAL HISTORY OF URINARY CALCULI 12/11/2017 FENECH DO, RK S Ot F17.210 NICOTINE DEPENDENCE, CIGARETTES, UNCOMPL 12/11/2017 FENECH DO, RK S Ot F32.9 MAJOR DEPRESSIVE DISORDER, SINGLE EPISOD 12/11/2017 FENECH DO, RK S Ot N73.6 FEMALE PELVIC PERITONEAL ADHESIONS (POST 12/11/2017 FENECH DO, RK S Ot Z11.2 ENCOUNTER FOR SCREENING FOR OTHER BACTER 12/11/2017 FENECH DO, RK S Ot Z87.442 PERSONAL HISTORY OF URINARY CALCULI 12/23/2017 FENECH DO, RK S Ot F17.210 NICOTINE DEPENDENCE, CIGARETTES, UNCOMPL 12/23/2017 FENECH DO, RK S Ot F32.9 MAJOR DEPRESSIVE DISORDER, SINGLE EPISOD 12/23/2017 FENECH DO, RK S Ot N73.6 FEMALE PELVIC PERITONEAL ADHESIONS (POST 12/23/2017 FENECH DO, RK S Ot Z11.2 ENCOUNTER FOR SCREENING FOR OTHER BACTER 12/23/2017 FENECH DO, RK S Ot Z87.442 PERSONAL HISTORY OF URINARY CALCULI 01/07/2019 RAYA DAVIS PREMIUM REPRESENTATIVE Ot N83.8 OTH NONINFLAMMATORY DISORD OF OVARY, FAL 01/07/2019 RAYA DAVIS PREMIUM REPRESENTATIVE Ot R10.3 1 RIGHT LOWER QUADRANT PAIN 01/07/2019 RAYA DAVIS PREMIUM REPRESENTATIVE Ot N83.8 OTH NONINFLAMMATORY DISORD OF OVARY, FAL 01/07/2019 RAYA DAVIS PREMIUM REPRESENTATIVE Ot R10.3 1 RIGHT LOWER QUADRANT PAIN 01/07/2019 ROVENSTINE DODARYA Ot F32.9 MAJOR DEPRESSIVE DISORDER, SINGLE EPISOD 01/07/2019 ROVENSTINE DODARYA Ot F41.9 ANXIETY DISORDER, UNSPECIFIED 01/07/2019 ROVENSTINE DO DARYA Lily Ot 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 01/07/2019 ROVENSTINE DO DARYA Bautista Ot O26.891 OT RELATED CONDITIONS, FIRST 01/07/2019 ROVENSTINE DO DARYA Lily Ot O99.341 OTH MENTAL DISORDERS COMPLICATING PREGNA 01/07/2019 ROVENSTINE DOGABRIELAEN Lily Ot R10.13 EPIGASTRIC PAIN 01/07/2019 ROVENSTINE DO DARYA Bautista Ot Z3A.08 8 WEEKS GESTATION OF 01/07/2019 ROVENSTINE DODARYA Ot Z88.2 ALLERGY STATUS TO SULFONAMIDES STATUS 01/07/2019 ROVENSTINE DODARYA Ot Z90.89 ACQUIRED ABSENCE OF OTHER ORGANS 01/11/2019 JESSICA ZARATE MD, Ot F32.9 MAJOR DEPRESSIVE DISORDER, SINGLE EPISOD 01/11/2019 JESSICA ZARATE MD, Ot F41.9 ANXIETY DISORDER, UNSPECIFIED 01/11/2019 JESSICA ZARATE MD Ot 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 01/11/2019 JESSICA ZARATE MD Ot O03.9 COMPLETE OR UNSP SPONTANEOUS [place] 01/11/2019 JESSICA ZARATE MD Ot O20.9 HEMORRHAGE IN EARLY , UNSPECIFI 01/11/2019 JESSICA ZARATE MD Ot Z3A.09 9 WEEKS GESTATION OF 01/11/2019 JESSICA ZARATE MD Ot Z87.442 PERSONAL HISTORY OF URINARY CALCULI 01/11/2019 JESSICA ZARATE MD Ot Z87.891 PERSONAL HISTORY OF NICOTINE DEPENDENCE 01/11/2019 JESSICA ZARATE MD Ot Z88.2 ALLERGY STATUS TO SULFONAMIDES STATUS 01/11/2019 JESSICA ZARATE MD Ot Z90.89 ACQUIRED ABSENCE OF OTHER ORGANS 01/15/2019 JESSICA ZARATE MD Ot F32.9 MAJOR DEPRESSIVE DISORDER, SINGLE EPISOD 01/15/2019 JESSICA ZARATE MD Ot F41.9 ANXIETY DISORDER, UNSPECIFIED 01/15/2019 JESSICA ZARATE MD Ot 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 01/15/2019 JESSICA ZARATE MD Ot O03.9 COMPLETE OR UNSP SPONTANEOUS [place] 01/15/2019 JESSICA ZARATE MD Ot O20.9 HEMORRHAGE IN EARLY , UNSPECIFI 01/15/2019 JESSICA ZARATE MD, Ot Z3A.09 9 WEEKS GESTATION OF 01/15/2019 JESSICA ZARATE MD Ot Z87.442 PERSONAL HISTORY OF URINARY CALCULI 01/15/2019 JESSICA ZARATE MD, Ot Z87.891 PERSONAL HISTORY OF NICOTINE DEPENDENCE 01/15/2019 JESSICA ZARATE MD, Ot Z88.2 ALLERGY STATUS TO SULFONAMIDES STATUS 01/15/2019 JESSICA ZARATE MD Ot Z90.89 ACQUIRED ABSENCE OF OTHER ORGANS 01/17/2019 FENECH DO, RK S Ot O20.0 THREATENED 01/25/2019 FENECH DO, RK S Ot O02.1 MISSED 01/31/2019 FENECH DO, RK S Ot O02.1 MISSED 02/04/2019 FENECH DO, RK S Ot O02.1 MISSED 02/04/2019 FENECH DO, RK S Ot O02.1 MISSED 02/04/2019 FENECH DO, RK S Ot O02.1 MISSED 02/14/2019 RAYA DAVIS PREMIUM REPRESENTATIVE Ot N83.8 OTH NONINFLAMMATORY DISORD OF OVARY, FAL 02/14/2019 RAYA DAVIS PREMIUM REPRESENTATIVE Ot R10.3 1 RIGHT LOWER QUADRANT PAIN 02/14/2019 FENECH DO, RK S Ot O20.0 THREATENED 02/14/2019 FENECH DO, RK S Ot O02.1 MISSED 02/14/2019 FENECH DO, RK S Ot O02.1 MISSED 02/15/2019 FENECH DO, RK S Ot O02.1 MISSED 02/18/2019 PATI WARNER MD Ot Z01.89 ENCOUNTER FOR OTHER SPECIFIED SPECIAL EX 04/21/2019 FENECH DO, RK S Ot O02.1 MISSED 04/25/2019 FENECH DO, RK S Ot O02.1 MISSED 05/05/2019 PATI WARNER MD Ot Z01.89 ENCOUNTER FOR OTHER SPECIFIED SPECIAL EX 05/06/2019 SELF PATI GOODRICH Ot Z01.89 ENCOUNTER FOR OTHER SPECIFIED SPECIAL EX 08/19/2019 ROGELIORK SANDOVAL DO Ot Z36.89 ENCOUNTER FOR OTHER SPECIFIED Procedures There is no data. Results Test Result Range CBC With Differential/Platelet - 7 13:45 WBC 4.0 x10E3/uL 3.4-10.8 RBC 4.28 x10E6/uL 3.77-5.28 Hemoglobin 13.2 g/dL 11.1-15.9 Hematocrit 40.7 % 34.0-46.6 MCV 95 fL 79-97 MCH 30.8 pg 26.6-33.0 MCHC 32.4 g/dL 31.5-35.7 RDW 12.9 % 12.3-15.4 Platelets 236 x10E3/uL 150-379 Neutrophils 54 % Lymphs 32 % Monocytes 5 % Eos 8 % Basos 1 % Neutrophils (Absolute) 2.1 x10E3/uL 1.4- 7.0 Lymphs (Absolute) 1.3 x10E3/uL 0.7-3.1 Monocytes(Absolute) 0.2 x10E3/uL 0.1-0.9 Eos (Absolute) 0.3 x10E3/uL 0.0-0.4 Baso (Absolute) 0.0 x10E3/uL 0.0-0.2 Immature Granulocytes 0 % Immature Grans (Abs) 0.0 x10E3/uL 0.0-0. 1 Comp. Metabolic Panel (14) - 08/28/16 13 :45 Glucose, Serum 71 mg/dL 65-99 BUN 10 mg/dL 6-20 Creatinine, Serum 0.70 mg/dL 0.57-1.00 eGFR If NonAfricn Am 123 mL/min/1.73 >59 eGFR If Africn Am 142 mL/min/1.73 >5 9 BUN/Creatinine Ratio 14 9-23 Sodium, Serum 142 mmol/L 134-144 Potassium, Serum 4.2 mmol/L 3.5-5.2 Chloride, Serum 101 mmol/L 96-106 Carbon Dioxide, Total 23 mmol/L 18-29 Calcium, Serum 10.0 mg/dL 8.7-10.2 Protein, Total, Serum 6.2 g/dL 6.0-8.5 Albumin, Serum 4.4 g/dL 3.5-5.5 Globulin, Total 1.8 g/dL 1.5-4.5 A/G Ratio 2.4 1.2-2.2 Bilirubin, Total 0.2 mg/dL 0.0-1.2 Alkaline Phosphatase, S 61 IU/L 39-117 AST (SGOT) 12 IU/L 0-40 ALT (SGPT) 11 IU/L 0-32 TSH - 08/28/16 13:45 TSH 1.320 uIU/mL 0.450-4.500 Urine beta human chorionic gonadotropin (hCG) measurement - 12/10/17 09:10 Urine beta human chorionic gonadotropin (hCG) measurem ent NEGATIVE NEGATIVE Complete blood count (CBC) with automate d white blood cell (WBC) differential - 12/10/17 09:30 Blood leukocytes automated count (number/volume) 3.6 10*3/uL 4.3-11.0 Blood erythrocytes automated count (number/volume) 4.35 10*6/uL 4.35-5.85 Venous blood hemoglobin measurement (mass/volume) 13.7 g/dL 11.5-16.0 Blood hematocrit (volume fraction) 39 % 35-52 Automated erythrocyte mean corpuscular volume 90 [ foz_us] 80-99 Automated erythrocyte mean corpuscular h emoglobin (mass per erythrocyte) 32 pg 25-34 Automated erythrocyte mean corpuscular h emoglobin concentration measurement (mass/volume) 35 g/dL 32-36 Automated erythrocyte distribution width ratio 12. 1 % 10.0- 14.5 Automated blood platelet count (count/volume) 220 10*3/uL 130-400 Automated blood platelet mean volume measurement 10.8 [foz_us] 7.4-10.4 Automated blood neutrophils/100 leukocytes 58 % 42-75 Automated blood lymphocytes/100 leukocytes 27 % 12-44 Blood monocytes/100 leukocytes 8 % 0-12 Automated blood eosinophils/100 leukocytes 7 % 0-10 Automated blood basophils/100 leukocytes 1 % 0-10 Blood neutrophils automated count (number/volume) 2.1 10*3 1.8-7.8 Blood lymphocytes automated count (number/volume) 1.0 10*3 1.0-4.0 Blood monocytes automated count (number/volume) 0. 3 10*3 0.0-1.0 Automated eosinophil count 0.2 10*3/uL 0 .0-0.3 Automated blood basophil count (count/volume) 0.0 10*3/uL 0.0-0.1 Blood type T Indirect antibody screen pa cadence - 12/10/17 09:30 ABO+Rh group OP NRG Transfusion band number [id number] NRG Blood group antibody screen NEGATIVE NR G Methicillin resistant Staphylococcus aur eus (MRSA) screening culture - 12/10/17 09:30 Methicillin resistant Staphylococcus aureus (MRSA) scr eening culture NEG NRG CULTURE, URINE - 10/05/18 14:02 CULTURE, URINE, [...] 11:16 HCG, TOTAL, QL POSITIVE See Note: Complete urinalysis with reflex to cultu re - 01/11/19 08:33 Urine color determination YELLOW NRG Urine clarity determination CLEAR NR G Urine pH measurement by test strip 7.0 5-9 Specific gravity of urine by test strip 1.015 1.016-1.022 Urine protein assay by test strip, semi-quantitative NEGATIVE NEGATIVE Urine glucose detection by automated test strip NE GATIVE NEGATIVE Erythrocytes detection in urine sediment by light micr oscopy 1+ NEGATIVE Urine ketones detection by automated test strip NE GATIVE NEGATIVE Urine nitrite detection by test strip NEGATIVE NEGATIVE Urine total bilirubin detection by test strip NEGA TIVE NEGATIVE Urine urobilinogen measurement by automated test strip (mass/volume) 0.2 mg/dL < = 1.0 Urine leukocyte esterase detection by dipstick NEG ATIVE NEGATIVE Automated urine sediment erythrocyte cou nt by microscopy (number/high power field) [HPF] NRG Automated urine sediment leukocyte count by microscopy (number/high power field) [HPF] NRG Bacteria detection in urine sediment by light microsco py NEGATIVE NRG Squamous epithelial cells detection in u rine sediment by light microscopy 10-25 NRG Crystals detection in urine sediment by light microsco py NONE NRG Casts detection in urine sediment by light microscopy NONE NRG Mucus detection in urine sediment by light microscopy SMALL NRG Complete urinalysis with reflex to culture NO NRG Bacteria identification in genital speci men by aerobe culture - 01/11/19 09:00 QUANTITY OF GROWTH Many NRG Bacteria identification in genital specimen by aerobe culture [id number] NRG Microscopic examination by HUBER preparati on - 01/11/19 09:00 HUBER RESULT NEGATIVE; NO FUNGAL ELEMENTS OBSERVED NRG Chlamydia trachomatis DNA detection by p robe and signal amplification method - 01/11/19 09:00 Chlamydia trachomatis DNA detection by p robe and target amplification method Not Detected Not Detected Neisseria gonorrhoeae DNA detection by p robe and signal amplification method - 01/11/19 09:00 Gonorrhea amp DNA-urine Not Detected No t Detected Serum or plasma choriogonadotropin measu rement (units/volume) - 01/11/19 09:15 Serum or plasma choriogonadotropin measurement (units/ volume) 40899 m[iU]/mL <5 Serum or plasma choriogonadotropin measu rement (units/volume) - 01/13/19 15:01 Serum or plasma choriogonadotropin measurement (units/ volume) 32600 m[iU]/mL <5 Serum or plasma choriogonadotropin measu rement (units/volume) - 01/21/19 11:43 Serum or plasma choriogonadotropin measurement (units/ volume) 9421 m[iU]/mL <5 Serum or plasma choriogonadotropin measu rement (units/volume) - 01/29/19 10:21 Serum or plasma choriogonadotropin measurement (units/ volume) 69 m[iU]/mL <5 Serum or plasma choriogonadotropin measu rement (units/volume) - 02/04/19 17:46 Serum or plasma choriogonadotropin measurement (units/ volume) 12 m[iU]/mL <5 TSH w/ FREE T4 - 06/10/19 08:26 TSH 1.36 mIU/L NRG T4, FREE 1.2 ng/dL 0.8-1.8 ANEMIA PANEL - 06/10/19 08:26 IRON, TOTAL 96 mcg/dL 40-190 FERRITIN 14 ng/mL 16-154 IRON BINDING CAPACITY 329 mcg/dL (calc) 250-450 % SATURATION 29 % (calc) 16-45 VITAMIN D, 25-H - 06/20/19 16:57 VITAMIN D,25-OH,TOTAL,IA 18 ng/mL 30-10 0 VITAMIN B12 - 06/20/19 17:00 VITAMIN B12 509 pg/mL 200-1100 COVID-19 ([facility]) - 07/05/19 09:59 VITAMIN D, 25-H - 07/28/19 10:28 VITAMIN D,25-OH,TOTAL,IA 55 ng/mL 30-10 0 TEST, SERUM (QUAL) - 08/05/19 15:53 HCG, TOTAL, QL POSITIVE See Note: Serum or plasma choriogonadotropin measu rement (units/volume) - 08/17/19 16:58 Serum or plasma choriogonadotropin measurement (units/ volume) 56691 m[iU]/mL <5 Complete urinalysis with reflex to cultu re - 08/17/19 16:58 Urine color determination YELLOW NRG Urine clarity determination CLEAR NR G Urine pH measurement by test strip 6.0 5-9 Specific gravity of urine by test strip 1.025 1.016-1.022 Urine protein assay by test strip, semi-quantitative NEGATIVE NEGATIVE Urine glucose detection by automated test strip NE GATIVE NEGATIVE Erythrocytes detection in urine sediment by light micr oscopy NEGATIVE NEGATIVE Urine ketones detection by automated test strip 1+ NEGATIVE Urine nitrite detection by test strip NEGATIVE NEGATIVE Urine total bilirubin detection by test strip NEGA TIVE NEGATIVE Urine urobilinogen measurement by automated test strip (mass/volume) 0.2 mg/dL < = 1.0 Urine leukocyte esterase detection by dipstick NEG ATIVE NEGATIVE Automated urine sediment erythrocyte cou nt by microscopy (number/high power field) NONE NRG Automated urine sediment leukocyte count by microscopy (number/high power field) [HPF] NRG Bacteria detection in urine sediment by light microsco py FEW NRG Squamous epithelial cells detection in u rine sediment by light microscopy 2-5 NRG Crystals detection in urine sediment by light microsco py NONE NRG Casts detection in urine sediment by light microscopy NONE NRG Mucus detection in urine sediment by light microscopy LARGE NRG Complete urinalysis with reflex to culture NO NRG Complete blood count (CBC) with automate d white blood cell (WBC) differential - 08/17/19 16:58 Blood leukocytes automated count (number/volume) 6.3 10*3/uL 4.3-11.0 Blood erythrocytes automated count (number/volume) 4.01 10*6/uL 4.35-5.85 Venous blood hemoglobin measurement (mass/volume) 12.7 g/dL 11.5-16.0 Blood hematocrit (volume fraction) 36 % 35-52 Automated erythrocyte mean corpuscular volume 90 [ foz_us] 80-99 Automated erythrocyte mean corpuscular h emoglobin (mass per erythrocyte) 32 pg 25-34 Automated erythrocyte mean corpuscular h emoglobin concentration measurement (mass/volume) 35 g/dL 32-36 Automated erythrocyte distribution width ratio 11. 8 % 10.0- 14.5 Automated blood platelet count (count/volume) 201 10*3/uL 130-400 Automated blood platelet mean volume measurement 10.6 [foz_us] 7.4-10.4 Automated blood neutrophils/100 leukocytes 71 % 42-75 Automated blood lymphocytes/100 leukocytes 21 % 12-44 Blood monocytes/100 leukocytes 5 % 0-12 Automated blood eosinophils/100 leukocytes 2 % 0-10 Automated blood basophils/100 leukocytes 1 % 0-10 Blood neutrophils automated count (number/volume) 4.4 10*3 1.8-7.8 Blood lymphocytes automated count (number/volume) 1.3 10*3 1.0-4.0 Blood monocytes automated count (number/volume) 0. 3 10*3 0.0-1.0 Automated eosinophil count 0.1 10*3/uL 0 .0-0.3 Automated blood basophil count (count/volume) 0.0 10*3/uL 0.0-0.1 Encounters ACCT No. Visit Date/Time Discharge Status Pt. Type Provider Facility Loc./Unit Complaint [id number] 08/29/2016 08:36:00 Document Registration [id number] 08/17/2019 16:27:00 23:59:59 CLS Outpatient RK MCDONNELL DO [facility] LAB FS 1-Z36.89 [id number] 02/04/2019 17:35:00 00:01:00 DIS Outpatient PATI WARNER MD [facility] LAB [id number] 01/21/2019 11:36:00 00:01:00 DIS Outpatient RK MCDONNELL DO [facility] LAB FS O02.1 [id number] 01/29/2019 10:15:00 23:59:59 CLS Outpatient RK MCDONNELL DO [facility] LAB FS [id number] 01/13/2019 14:50:00 23:59:59 CLS Outpatient RK MCDONNELL DO [facility] LAB FS O20.0 [id number] 01/11/2019 08:21:00 10:53:00 DIS Emergency JESSICA ZARATE MD [facility] ER FS VAGINAL BLEEDIN G [id number] 01/07/2019 16:38:00 18:00:00 DIS Emergency ROVENSTINE DO DARYA Lily [facility] ER FS NAUSEA; ABD KENNEDY N [id number] 12/10/2017 11:45:00 23:59:59 CLS Preadmit RK MCDONNELL DO [facility] RIGHT LOWER QUAD PAIN, PELVIC PAIN [id number] 12/10/2017 08:50:00 15:30:00 DIS Outpatient RK MCDONNELL DO [facility] RIGHT LOWER QUAD. PAIN , CHRONIC PELVIC PAIN [id number] 12/07/2017 05:38:00 10:54:00 DIS Outpatient RK MCDONNELL DO [facility] PREOP DIAGNOSTIC LAPAROSCOPY [id number] 11/17/2017 12:47:00 018 23:59:59 CLS Outpatient QUICKRAYA [facility] RAD CHRONIC RLQ PAIN [id number] 08/05/2019 15:45:00 08/05/2019 23:59:5 9 CLS Outpatient SELF, PATI Natarajan [facility] [id number] 08/05/2019 15:45:00 Document Registration [id number] 07/28/2019 10:15:00 Document Registration [id number] 07/05/2019 09:30:00 Document Registration [id number] 06/20/2019 15:15:00 Document Registration [id number] 06/10/2019 08:15:00 Document Registration [id number] 12/07/2018 10:00:00 Document Registration [id number] 10/05/2018 13:20:00 Document Registration
[2019-08-21] MEDS ORDERED: ONDANSETRON 4 MG/2 ML (SDV) Z0FRAN IVP ONE (21:30)
[2019-08-21] MEDS ORDERED: NS IV 1000 ML 1,000 ML IV SCH (21:30)
--- NOTE | 2019-08-21 21:40 | ED GI ---
General Chief Complaint: Abdominal/GI Problems Stated Complaint: NAUSEA Nursing Triage Note: PT AMBULATE TO ROOM FS02 WITH C/O NAUSEA X2 WEEKS. PT REPORTS SHE IS APPROX 7 WEEKS . PT REPORTS CONTACTING OB DOC AFTER 1 WEEK AND WAS TOLD THAT SYMPTOMS WERE NORMAL. PT REPORTS SHE HAS NOT CONTACTED OB DOC SINCE. PT STATES SHE IS HERE TODAY BECAUSE HER FIANCE WANTED HER TO BE SEEN IN ED. Sepsis Screen: No Definite Risk History of Present Illness Date Seen by Provider: Aug 21, 2019 Time Seen by Provider: 21:30 Initial Comments Pt presents with N/V x 2 weeks. She is about 7 weeks . This is her second , she had a miscarriage with her first . She has felt nausea and some dry heaving for 2 weeks. She doesn't feel like eating anything. She has not vomited today, just feels nauseated. Allergies and Home Medications Allergies Coded Allergies: Sulfa (Sulfonamides) (Unverified Allergy, RASH,SOB, 10/29/09) Home Medications Vit W-Ca,Fe,FA(<1 mg) 1 Each Tablet, 1 EACH PO DAILY, (Reported) Patient Home Medication List Home Medication List Reviewed: Yes Review of Systems Review of Systems Constitutional: No chills, No fever EENTM: No Nose Congestion, No Throat Pain Respiratory: Denies Cough, Denies Shortness of Air Cardiovascular: Denies Chest Pain Gastrointestinal: Denies Abdominal Pain, Denies Diarrhea; Nausea, Vomiting Genitourinary: Denies Frequency, Denies Hematuria Musculoskeletal: no symptoms reported Skin: no symptoms reported Hematologic/Lymphatic: No Symptoms Reported All Other Systems Reviewed Negative Unless Noted: Yes Past Akcxxsa-Kejgdy-Zcbdho Hx Patient Social History Alcohol Use: Denies Use Number of Drinks Today: GG Alcohol Beverage of Choice: Whiskey Recreational Drug Use: No Smoking Status: Former Smoker Type Used: Cigarettes Former Smoker, Quit: Dec 10, 2018 2nd Hand Smoke Exposure: Yes Recent Foreign Travel: No Contact w/Someone Who Travel: No Recent Infectious Disease Expo: No Recent Hopitalizations: No Physical Abuse: No Sexual Abuse: No Mistreated: No Fear: No Immunizations Up To Date Date of Influenza Vaccine: Nov 09, 2018 Seasonal Allergies Seasonal Allergies: Yes Past Medical History Surgeries: Yes (JJ stent placed and removed, wisdom teeth) Tonsillectomy Respiratory: No Cardiac: No (a murmur as an infant) Neurological: No Reproductive Disorders: Yes (RLQ pain, CPP) Sexually Transmitted Disease: No Genitourinary: No Kidney Stones Gastrointestinal: No Musculoskeletal: No Endocrine: No HEENT: No Cancer: No Psychosocial: Yes Anxiety, Depression Integumentary: No Blood Disorders: No Physical Exam Vital Signs Vital Signs - First Documented 08/21/19 21:08 Temp 37.7 Pulse 93 Resp 18 B/P (MAP) 108/69 (82) O2 Delivery Room Air Capillary Refill : Less Than 3 Seconds Height/Weight/BMI Height: 5'0.00" Weight: 120lbs. 0.0oz. [id number]; 23.00 BMI Method: General Appearance: WD/WN, no apparent distress HEENT: normal ENT inspection Respiratory: normal breath sounds, no respiratory distress Cardiovascular: regular rate, rhythm, no edema Gastrointestinal: non tender, soft Extremities: normal inspection Neurologic/Psychiatric: no motor/sensory deficits, alert, normal mood/affect, oriented x 3 Skin: normal color, warm/dry Progress/Results/Core Measures Results/Orders Lab Results Laboratory Tests Test 08/21/19 21:30 08/21/19 21:41 Range/Units Urine Color YELLOW Urine Clarity CLOUDY Urine pH 7.0 5-9 Urine Specific [place] 1.020 1.016-1.022 Urine Protein NEGATIVE NEGATIVE Urine Glucose (UA) NEGATIVE NEGATIVE Urine Ketones TRACE H NEGATIVE Urine Nitrite NEGATIVE NEGATIVE Urine Bilirubin NEGATIVE NEGATIVE Urine Urobilinogen 0.2 < = 1.0 MG/DL Urine Leukocyte Esterase NEGATIVE NEGATIVE Urine RBC (Auto) NEGATIVE NEGATIVE Urine RBC NONE /HPF Urine WBC 0-2 /HPF Urine Squamous Epithelial Cells 5-10 /HPF Urine Crystals PRESENT H /LPF Urine Amorphous Sediment LARGE JASON PHOSPHATE H /LPF Urine Bacteria TRACE /HPF Urine Casts NONE /LPF Urine Mucus NEGATIVE /LPF Urine Culture Indicated NO White Blood Count 6.8 4.3-11.0 10^3/uL Red Blood Count 4.29 L 4.35-5.85 10^6/uL Hemoglobin 13.4 11.5-16.0 G/DL Hematocrit 39 35-52 % Mean Corpuscular Volume 90 80-99 FL Mean Corpuscular Hemoglobin 31 25-34 PG Mean Corpuscular Hemoglobin Concent 35 32-36 G/DL Red Cell Distribution Width 11.9 10.0-14.5 % Platelet Count 215 130-400 10^3/uL Mean Platelet Volume 10.9 H 7.4-10.4 FL Neutrophils (%) (Auto) 63 42-75 % Lymphocytes (%) (Auto) 26 12-44 % Monocytes (%) (Auto) 6 0-12 % Eosinophils (%) (Auto) 4 0-10 % Basophils (%) (Auto) 0 0-10 % Neutrophils # (Auto) 4.3 1.8-7.8 X 10^3 Lymphocytes # (Auto) 1.8 1.0-4.0 X 10^3 Monocytes # (Auto) 0.4 0.0-1.0 X 10^3 Eosinophils # (Auto) 0.3 0.0-0.3 10^3/uL Basophils # (Auto) 0.0 0.0-0.1 10^3/uL Sodium Level 137 135-145 MMOL/L Potassium Level 3.9 3.6-5.0 MMOL/L Chloride Level 104 98-107 MMOL/L Carbon Dioxide Level 23 21-32 MMOL/L Anion Gap 10 5-14 MMOL/L Blood Urea Nitrogen 9 7-18 MG/DL Creatinine 0.68 0.60-1.30 MG/DL Estimat Glomerular Filtration Rate > 60 BUN/Creatinine Ratio 13 Glucose Level 85 70-105 MG/DL Calcium Level 9.3 8.5-10.1 MG/DL Corrected Calcium 9.1 8.5-10.1 MG/DL Total Bilirubin 0.3 0.1-1.0 MG/DL Aspartate Amino Transf (AST/SGOT) 16 5-34 U/L Alanine Aminotransferase (ALT/SGPT) 12 0-55 U/L Alkaline Phosphatase 58 40-136 U/L Total Protein 6.3 L 6.4-8.2 GM/DL Albumin 4.3 3.2-4.5 GM/DL Lipase 19 8-78 U/L My Cheryl Orders - NEIL PADILLA MD Cbc With Automated Diff (08/21/19 21:22) Comprehensive Metabolic Panel (08/21/19 21:22) Lipase (08/21/19 21:22) Ns Iv 1000 Ml (Sodium Chloride 0.9%) (08/21/19 21:30) Ondansetron Injection (Zofran Injectio (08/21/19 21:30) Hcg,Quantitative (08/21/19 21:29) Ua Culture If Indicated (08/21/19 21:39) Medications Given in ED Current Medications Medications Dose Ordered Sig/Gibran Route Start Time Stop Time Status Last Admin Dose Admin Ondansetron HCl 4 mg ONCE ONCE IVP 08/21/19 21:30 08/21/19 21:31 DC 08/21/19 21:40 4 MG Vital Signs/I&O 08/21/19 21:08 Temp 37.7 Pulse 93 Resp 18 B/P (MAP) 108/69 (82) O2 Delivery Room Air Blood Pressure Mean: 82 Progress Progress Note : Time: 22:21 Progress Note Workup unremarkable. Feels better after fluids. Ready for discharge. Departure Impression Primary Impression: Vomiting during Disposition: 01 HOME, SELF-CARE Condition: Stable Departure-Patient Inst. Referrals: PATI WARNER MD (PCP/Family) Primary Care Physician Patient Instructions: Nausea and Vomiting of (DC) NEIL PADILLA MD Aug 21, 2019 21:40
[2019-08-21 21:43] LABS: AMORPHOUS SEDIMENT,UR LARGE AMOR PHOSPHATE /LPF; BACTERIA,URINE TRACE /HPF; BILIRUBIN,URINE NEGATIVE (NEGATIVE); CLARITY,URINE CLOUDY; COLOR,URINE YELLOW; GLUCOSE, URINE (UA) NEGATIVE (NEGATIVE); KETONES,URINE TRACE (NEGATIVE); LEUKOCYTE ESTERASE ,URINE NEGATIVE (NEGATIVE); NITRITE,URINE NEGATIVE (NEGATIVE); PROTEIN,URINE NEGATIVE (NEGATIVE); WBC,URINE 0-2 /HPF
[2019-08-21 21:48] LABS: HEMATOCRIT 39 % (35-52); HEMOGLOBIN 13.4 G/DL (11.5-16.0); MEAN CORPUSCULAR HEMOGLOBIN 31 PG (25-34); WHITE BLOOD COUNT 6.8 10^3/uL (4.3-11.0)
[2019-08-21 21:49] LABS: BASOPHILS % (AUTO) 0 % (0-10); EOSINOPHILS # (AUTO) 0.3 10^3/uL (0.0-0.3); EOSINOPHILS % (AUTO) 4 % (0-10); LYMPHOCYTES # (AUTO) 1.8 X 10^3 (1.0-4.0); LYMPHOCYTES % (AUTO) 26 % (12-44); MEAN CORPUSCULAR HGB CONC 35 G/DL (32-36); MEAN CORPUSCULAR VOLUME 90 FL (80-99); MEAN PLATELET VOLUME 10.9 FL (7.4-10.4); MONOCYTES # (AUTO) 0.4 X 10^3 (0.0-1.0); MONOCYTES % (AUTO) 6 % (0-12); NEUTROPHILS # (AUTO) 4.3 X 10^3 (1.8-7.8); NEUTROPHILS % (AUTO) 63 % (42-75); PLATELET COUNT 215 10^3/uL (130-400); RED CELL DISTRIBUTION WIDTH 11.9 % (10.0-14.5)
[2019-08-21 22:06] LABS: ALANINE AMINOTRANSFERASE 12 U/L (0-55); ALBUMIN 4.3 GM/DL (3.2-4.5); ALKALINE PHOSPHATASE 58 U/L (40-136); BILIRUBIN,TOTAL 0.3 MG/DL (0.1-1.0); BUN/CREATININE RATIO 13; CALCIUM 9.3 MG/DL (8.5-10.1); CARBON DIOXIDE 23 MMOL/L (21-32); CHLORIDE 104 MMOL/L (98-107); CREATININE SERUM 0.68 MG/DL (0.60-1.30); GFR ESTIMATED > 60; GLUCOSE 85 MG/DL (70-105); LIPASE 19 U/L (8-78); POTASSIUM 3.9 MMOL/L (3.6-5.0); SODIUM 137 MMOL/L (135-145); TOTAL PROTEIN 6.3 GM/DL (6.4-8.2)
[2019-08-21 22:31] VITALS: BP 111/70
== END 2019-08-21 22:31 | disposition home or self-care (01) ==
LOC: EDUNIT# 21:00 → ER FS 21:04
DX: O21.9 Vomiting of pregnancy, unspecified (principal); Z3A.01 Less than 8 weeks gestation of pregnancy; Z88.2 Allergy status to sulfonamides; Z87.891 Personal history of nicotine dependence; Z77.22 Contact with and (suspected) exposure to environmental tobacco smoke (acute) (chronic)
CPT/HCPCS: 36415; 80053; 81000; 83690; 84702; 85025; 99282

== ENCOUNTER → 2019-11-18 | Outpatient (CLI) | payer MEDICAID ==
--- NOTE | 2019-11-18 11:49 | Diagnostic Imaging Report ---
INDICATION: survey. TECHNIQUE: Multiple real-time grayscale images were obtained over the gravid uterus. COMPARISON: None FINDINGS: There is a single live fetus in a cephalic presentation. heart rate was recorded at 146 bpm. Placenta is anterior. Amniotic fluid index is 13.5 cm. No placenta previa is seen. kidneys, bladder and stomach are unremarkable. brain is unremarkable. There is a four-chamber heart. There is a three-vessel cord with normal insertion. spine is unremarkable. Biometrical measurements are as follows: Biparietal 4.93 cm, age 21 weeks 0 days. Head circumference 17.50 cm, age 20 weeks 1 days. Abdominal circumference 14.77 cm, age 20 weeks 1 days. Femur length 3.22 cm, age 20 weeks 1 days. Sonographic estimate age: 20 weeks 3 days. Sonographic estimated date of delivery: 04/03/2020. Estimated Weight: 330 gm (+/- 48 gm). LMP percentile: 41%. heart rate: 146 beats per minute. number: 1 of 1. IMPRESSION: Single live IUP approximately 20 weeks 3 days gestational age. Estimated date of confinement sonographically is 04/03/2020. Dictated by: Dictated on workstation # [id number]
== END ==
LOC: RAD 09:24
PROVIDERS: ATTEND Obstetrics & Gynecology
DX: Z34.92 Encounter for supervision of normal pregnancy, unspecified, second trimester (principal); Z3A.20 20 weeks gestation of pregnancy
CPT/HCPCS: 76805

== ENCOUNTER 2020-01-13 14:34 | Outpatient (CLI) | payer MEDICAID ==
[~2020-01-13] VITALS: Ht 61 cm; Wt 69.9 kg
--- NOTE | 2020-01-13 14:21 | NUR ---
XOCHITL LEE presented to unit via ambulatory from ED, accompanied by self , with c/o DECREASED MOVEMENT. XOCHITL LEE weighed, gowned, voided, and to bed. EFHM and TOCO applied, VS taken. XOCHITL LEE oriented to bed controls, call light, TV, heat, and A/C controls.
--- NOTE | 2020-01-13 15:01 | NUR ---
Dr. Evangelista notified of pt arrival, complaint, cervical exam, and urine results. New orders received for discharge.
[2020-01-13 15:07] VITALS: BP 108/71
[2020-01-13 15:08] VITALS: BP 108/71
[2020-01-13] MEDS ORDERED: FAMO20TA3 PO (15:21)
[2020-01-13] MEDS ORDERED: CETI10TA17 PO (15:22)
--- NOTE | 2020-01-13 15:33 | NUR ---
Discharge instructions given to patient. Reminded importance of drinking lots of fluids and resting. Pt verbalizes understanding. PHS given to patient. Pt signed that discharge instructions were given. Pt ambulated off of unit in stable condition to home in private auto.
--- NOTE | 2020-01-16 09:29 | Physician Query-Final Dx ---
CATIE DELGADO 01/16/20 0928: Clinic Account Progress/Dx Physician Query: Please give diagnosis Please include # weeks gestation Date of Service Jan 13, 2020 at 14:34 ARELI MUNGUIA MD 01/17/20 1738: Clinic Account Progress/Dx DIAGNOSIS: Diagnosis Decreased movement CATIE DELGADO Jan 16, 2020 09:28 ARELI MUNGUIA MD Jan 17, 2020 17:38
== END 2020-01-13 15:33 | disposition home or self-care (01) ==
LOC: WSo 14:34 → LDRP 14:35 → WSo 15:33
PROVIDERS: ATTEND Obstetrics & Gynecology
DX: O36.8130 Decreased fetal movements, third trimester, not applicable or unspecified (principal); Z3A.28 28 weeks gestation of pregnancy
CPT/HCPCS: 99213

== ENCOUNTER 2020-04-01 18:31 | Inpatient (IN) | payer MEDICAID ==
[~2020-04-01] VITALS: Ht 154.9 cm; Wt 77.6 kg
[~2020-04-01 18:31] MED LIST changes: +CETI10TA17 PO; +FAMO20TA3 PO
[2020-04-01 19:20] VITALS: BP 123/91
[2020-04-01] MEDS ORDERED: D5 LR IV SOLUTION 1,000 ML IV ONE (19:30)
[2020-04-01] MEDS ORDERED: MISOPROSTOL 100 MCG (CYTOTEC) TAB ONE (19:31)
[2020-04-01] MEDS: D5 LR IV SOLUTION 1,000 ML IV SCH ×2 (19:35→23:28)
[2020-04-01 20:00] VITALS: BP 123/91
[2020-04-01] MEDS ORDERED: MISOPROSTOL 100 MCG (CYTOTEC) TAB PO ONE (20:00)
[2020-04-01] MEDS ORDERED: TERBUTALINE INJ 1 MG/ML (BRETHINE) AMP SC PRN (20:00)
[2020-04-01 20:04] LABS: BASOPHILS % (AUTO) 0 % (0-10); EOSINOPHILS # (AUTO) 0.1 10^3/uL (0.0-0.3); EOSINOPHILS % (AUTO) 1 % (0-10); HEMATOCRIT 35 % (35-52); HEMOGLOBIN 11.8 g/dL (11.5-16.0); LYMPHOCYTES % (AUTO) 11 % (12-44); MEAN CORPUSCULAR HEMOGLOBIN 30 pg (25-34); MEAN CORPUSCULAR HGB CONC 34 g/dL (32-36); MEAN CORPUSCULAR VOLUME 90 fL (80-99); MEAN PLATELET VOLUME 10.6 fL (9.0-12.2); MONOCYTES # (AUTO) 0.5 10^3/uL (0.0-1.0); MONOCYTES % (AUTO) 5 % (0-12); NEUTROPHILS # (AUTO) 7.5 10^3/uL (1.8-7.8); NEUTROPHILS % (AUTO) 83 % (42-75); PLATELET COUNT 197 10^3/uL (130-400)
[2020-04-01 20:13] VITALS: BP 115/70
[2020-04-01 20:15] LABS: BILIRUBIN,URINE NEGATIVE (NEGATIVE); CLARITY,URINE SL CLOUDY; COLOR,URINE YELLOW; GLUCOSE, URINE (UA) NEGATIVE (NEGATIVE); KETONES,URINE 2+ (NEGATIVE); LEUKOCYTE ESTERASE ,URINE TRACE (NEGATIVE); NITRITE,URINE NEGATIVE (NEGATIVE); PROTEIN,URINE NEGATIVE (NEGATIVE)
[2020-04-01 20:18] LABS: BACTERIA,URINE FEW /HPF
[2020-04-01 21:13] VITALS: BP 113/70
[2020-04-01 22:14] VITALS: BP 108/64
[2020-04-01 23:13] VITALS: BP 103/64
[2020-04-01] MEDS: CATHETER FLUSH 10 ML SYR IV SCH (23:30)
[2020-04-02] VITALS (39 sets, daily range): BP systolic 90–150; BP diastolic 52–91
[2020-04-02] MEDS ORDERED: MISOPROSTOL 100 MCG (CYTOTEC) TAB PO SCH
[2020-04-02] MEDS ORDERED: HYDROmorphone 2 MG/ML VIAL (DILAUDID) ONE (03:55)
[2020-04-02] MEDS ORDERED: HYDROmorphone 2 MG/ML VIAL (DILAUDID) IV ONE (04:00)
[2020-04-02] MEDS: CATHETER FLUSH 10 ML SYR IV SCH (06:17)
--- NOTE | 2020-04-02 07:26 | History & Physical-OB ---
OB - Chief Complaint & HPI Date/Time Date of Admission: Date of Admission: Apr 01, 2020 at 18:31 Date seen by a Provider: Apr 02, 2020 Time Seen by a Provider: 07:35 Chief Complaint/History OB-Reason for Admission/Chief: Induction of Labor Hx : 2 Hx Para: 0 Expected Date of Delivery: Apr 05, 2020 Gestational Age in Weeks: 39 Gestational Age in Days: 3 Admission Nurse Assessment Rev: Yes Allergies and Home Medications Allergies Coded Allergies: Sulfa (Sulfonamide Antibiotics) (Unverified Allergy, Unknown, RASH,SOB, 04/01/20) Home Medications Cetirizine HCl 10 Mg Tablet, 10 MG PO DAILY, (Reported) Vit W-Ca,Fe,FA(<1 mg) 1 Each Tablet, 1 EACH PO DAILY, (Reported) Patient Home Medication List Home Medication List Reviewed: Yes OB - History Hx of Present Care: Yes Ultrasounds: Normal mid trimester US Obstetrical Complications: None Medical Complications: None Delivery History Hx Blood Disorders: No Patient Past Medical History n/a Social History/Family History 2nd Hand Smoke Exposure: No Immunizations Date of Influenza Vaccine: Jan 30, 2020 OB - Admission Exam Physical Exam Vitals: Vital Signs 04/01/20 04/02/20 04/02/20 04/02/20 20:00 01:14 05:13 06:16 Temp 36.6 Pulse 93 Resp 20 B/P (MAP) 125/78 (94) Pulse Ox 99 O2 Delivery Room Air HEENT: NCAT Heart: Rhythm Normal Lungs: Clear Abdomen: Gravid Extremities: Normal Reflexes: Normal Cervical Dilatation: 1cm Effacement: 75% Station: -1 Membranes: Intact Heart Rate: 130's Accelerations: Accelerations Present Decelerations: No Decelerations Short Term Variability: Present Detention Variability: Average (6-25) Contractions on Admission: 6-10 Minutes Apart Intensity: Mild Cent[place] Scoring Tool (Modified) Dilation (cm): 1-2cm (1) Effacement (%): 51-79% (2) Descent/Station: -1,0 (2) Cervix Consistency: Soft (2) Cervix Position: Anterior (2) Subtract 1 point for: Nulliparity (-1) Centeno Score: 8 Labs Laboratory Tests Test 04/01/20 19:00 04/01/20 19:55 Range/Units Urine Color YELLOW Urine Clarity SL CLOUDY Urine pH 7.0 5-9 Urine Specific [place] 1.025 H 1.016-1.022 Urine Protein NEGATIVE NEGATIVE Urine Glucose (UA) NEGATIVE NEGATIVE Urine Ketones 2+ H NEGATIVE Urine Nitrite NEGATIVE NEGATIVE Urine Bilirubin NEGATIVE NEGATIVE Urine Urobilinogen 0.2 < = 1.0 MG/DL Urine Leukocyte Esterase TRACE H NEGATIVE Urine RBC (Auto) TRACE-I NEGATIVE Urine RBC 2-5 H /HPF Urine WBC 2-5 /HPF Urine Squamous Epithelial Cells 5-10 /HPF Urine Crystals NONE /LPF Urine Bacteria FEW H /HPF Urine Casts NONE /LPF Urine Mucus NEGATIVE /LPF Urine Culture Indicated YES White Blood Count 9.0 4.3-11.0 10^3/uL Red Blood Count 3.89 3.80-5.11 10^6/uL Hemoglobin 11.8 11.5-16.0 g/dL Hematocrit 35 35-52 % Mean Corpuscular Volume 90 80-99 fL Mean Corpuscular Hemoglobin 30 25-34 pg Mean Corpuscular Hemoglobin Concent 34 32-36 g/dL Red Cell Distribution Width 13.3 10.0-14.5 % Platelet Count 197 130-400 10^3/uL Mean Platelet Volume 10.6 9.0-12.2 fL Immature Granulocyte % (Auto) 0 % Neutrophils (%) (Auto) 83 H 42-75 % Lymphocytes (%) (Auto) 11 L 12-44 % Monocytes (%) (Auto) 5 0-12 % Eosinophils (%) (Auto) 1 0-10 % Basophils (%) (Auto) 0 0-10 % Neutrophils # (Auto) 7.5 1.8-7.8 10^3/uL Lymphocytes # (Auto) 1.0 1.0-4.0 10^3/uL Monocytes # (Auto) 0.5 0.0-1.0 10^3/uL Eosinophils # (Auto) 0.1 0.0-0.3 10^3/uL Basophils # (Auto) 0.0 0.0-0.1 10^3/uL Immature Granulocyte # (Auto) 0.0 0.0-0.1 10^3/uL OB - Assessment/Plan/Diagnosis Assessment Assessment: induction of labor Admission Dx 24 yo @ 39 weeks Elective induction of labor GBS neg Admission Status: Inpatient Order (span 2 midnights) Reason for Inpatient Admission: INduction of labor at term Plan Plan: Induction Induction Method: per Misoprostol Protocol RK MCDONNELL DO Apr 02, 2020 07:26
[2020-04-02] MEDS ORDERED: OXYTOCIN PRE-MIX DRIP 500 ML IV ONE (07:47)
[2020-04-02] MEDS ORDERED: fentaNYL 2 mcg/ml BUPIVA 0.125 100 ML ONE (07:47)
[2020-04-02] MEDS ORDERED: fentaNYL INJECTION 100 MCG/2 ML AMP ONE ×2 (08:23→11:37)
[2020-04-02] MEDS ORDERED: BUPIVACAINE 0.25% 30 ML (SENSORCAINE) VIAL ONE (08:23)
[2020-04-02] MEDS ORDERED: NALOXONE 0.4 MG/ML 1 ML (NARCAN) VIAL IV PRN (08:30)
[2020-04-02] MEDS ORDERED: CATHETER FLUSH 10 ML SYR IV PRN (08:30)
[2020-04-02] MEDS ORDERED: fentaNYL 2 mcg/ml BUPIVA 0.125 100 ML IV SCH (08:30)
[2020-04-02] MEDS ORDERED: LACTATED RINGERS 1,000 ML IV ONE (08:30)
[2020-04-02] MEDS: D5 LR IV SOLUTION 1,000 ML IV SCH (09:22)
[2020-04-02] MEDS ORDERED: LIDOCAINE/EPI 2% 1:200,00 (XYLOCAINE) 10 ML VIAL ONE (13:17)
[2020-04-02] MEDS ORDERED: TETANUS,DIPTH,PERTUSS P/F (BOOSTRIX) 0.5 ML VIAL IM ONE (14:00)
[2020-04-02] MEDS ORDERED: BENZOCAINE/MENTHOL (DERMOPLAST) 60 ML CAN TP PRN (14:00)
[2020-04-02] MEDS ORDERED: OXYTOCIN PRE-MIX DRIP 500 ML IV SCH (14:00)
[2020-04-02] MEDS ORDERED: WITCH HAZEL(TUCKS) 40 EA JAR TOP PRN (14:00)
[2020-04-02] MEDS ORDERED: DIBUCAINE (NUPERCAINAL) 1% OINT 30 GM TOP PRN (14:00)
[2020-04-02] MEDS ORDERED: MEASLES,MUMPS,RUBELLA 1 EA INJ SQ ONE (14:00)
[2020-04-02] MEDS ORDERED: CATHETER FLUSH 10 ML SYR IV SCH (14:00)
--- NOTE | 2020-04-02 14:07 | OB Labor & Delivery Record ---
L&D History Date of Service Date of Service: Apr 02, 2020 History Expected Date of Delivery: Apr 05, 2020 Gestational Age in Weeks: 39 Hx : 2 Hx Para: 0 Complications Events: Routine care Operative Indications (Cesarea: N/A-Vaginal Delivery Intrapartal Events: None L&D Stage1 Stage One Onset of Labor - Date: Apr 02, 2020 Monitors and Tracing Monitor Mode: External Heart Rate: 125 Station: +1 Intermediate Variability: Average (6-10) Short Term Variability: Present Presentation: Vertex Vital Signs VS - Last 72 Hours, by Label 04/01/20 04/01/20 04/01/20 04/01/20 19:20 20:00 20:13 21:13 Temp 36.5 36.5 36.2 Pulse 105 105 90 86 Resp 20 20 20 20 B/P (MAP) 123/91 (102) 115/70 (85) 113/70 (84) Pulse Ox 99 99 O2 Delivery Room Air Room Air Room Air Room Air 04/01/20 04/01/20 04/02/20 04/02/20 22:14 23:13 00:14 01:14 Temp 36.6 36.5 Pulse 74 77 81 89 Resp 20 20 20 20 B/P (MAP) 108/64 (79) 103/64 (77) 90/52 (65) 114/71 (85) O2 Delivery Room Air Room Air Room Air 04/02/20 04/02/20 04/02/20 04/02/20 02:14 03:13 04:14 05:13 Temp 36.6 Pulse 82 80 76 85 Resp 20 20 20 20 B/P (MAP) 112/57 (75) 111/58 (75) 110/68 (82) 120/64 (82) 04/02/20 04/02/20 04/02/20 04/02/20 06:16 08:15 08:35 08:40 Temp 37.0 Pulse 93 82 80 90 Resp 20 20 20 20 B/P (MAP) 125/78 (94) 132/75 (94) 121/67 (85) 121/70 (87) Pulse Ox 100 100 O2 Delivery Room Air Room Air 04/02/20 04/02/20 04/02/20 04/02/20 08:45 08:50 08:55 09:00 Pulse 83 90 94 86 Resp 20 20 20 20 B/P (MAP) 112/63 (79) 118/91 (100) 120/59 (79) 113/64 (80) Pulse Ox 100 98 99 99 O2 Delivery Room Air Room Air Room Air Room Air 04/02/20 04/02/20 04/02/20 04/02/20 09:05 09:10 09:15 09:20 Pulse 86 98 98 77 Resp 20 20 20 20 B/P (MAP) 106/57 (73) 103/54 (70) 103/54 (70) 114/63 (80) Pulse Ox 99 99 99 99 O2 Delivery Room Air Room Air Room Air Room Air 04/02/20 04/02/20 04/02/20 04/02/20 09:30 09:50 10:05 10:20 Temp 37.1 Pulse 75 99 87 76 Resp 20 20 20 20 B/P (MAP) 117/68 (84) 119/56 (77) 106/57 (73) 105/63 (77) Pulse Ox 100 100 100 100 O2 Delivery Room Air Room Air Room Air Room Air 04/02/20 04/02/20 04/02/20 10:35 10:50 11:05 Pulse 77 79 84 Resp 20 20 20 B/P (MAP) 107/67 (80) 110/74 (86) 129/80 (96) Pulse Ox 100 100 100 O2 Delivery Room Air Room Air Room Air Rupture of Membranes Spontaneous Ruture of Membrane: Yes Amniotic Membrane Rupture Time: 0659 Amniotic Membrane Fluid Desc.: Clear Vaginal Bleeding Description: Normal Show Induction/Anesthesia Epidural Cath Placement - Time: 0840 Progress/Notes Patient brought in for elective IOL, misoprostol used overnight, SROM occurred this AM, and pitocin augmentation used after epidural placed. She progressed to complete and + 2 station. L&D Stage2 Stage Two Stage II Date: Apr 02, 2020 Monitors and Tracing Monitor Mode: External Heart Rate: 125 Monitor Accelerations: Uniform Food Beverage Manager Variability: Average (6-10) Short Term Variability: Present Position: Right Occiput Anterior Cord Descript/Complications Cord Vessel Description: 3 Vessels Delivery Type Delivery Method: Spontaneous Vaginal Anterior Shoulder: Left Episiotomy/Perineal Laceration Laceraction(s)/Extensions: Yes Episiotomy Description: Perineal Extension/lac, 1st degree Degree (describe repair) 1st degree perineal laceration repaired using 3-0 rapide vicryl suture Condition of Delivery 1 minute Comment: 8 5 minute Comment: 9 Notes Live female weight 7lbs 4oz Condition of Infant Condition of : Living Exam: No Observed Abnormalities Resuscitation Resuscitation: N/A - Spontaneous Resp L&D Stage3 Stage Three Stage III Date: Apr 02, 2020 Pictocin Pitocin Administration mu/min: 6 Pitocin ml/hr: 6 Pitocin Administration Comment: 30 mu wide open at delivery of placenta Placenta Delivery Placenta Delivery: Spontaneous Delivery Summary Summary Estimated blood loss (mL): 350 Attending at delivery: Rk Mcdonnell DO Condition of Delivery Examined: Cervix Examined, Uterus Explored Post Hemorrhage: No Condition of Mother stable Condition of Infant (s) stable RK MCDONNELL DO Apr 02, 2020 14:07
--- NOTE | 2020-04-02 14:19 | Discharge Inst-Women's Service ---
Discharge Inst-Women's Serv Depart Medication/Instructions New, Converted or Re-Newed RX: RX on Chart Final Diagnosis PPD 1 NVD Problems Reviewed?: Yes Consults/Follow Up Additional Follow Up: Yes Orders/Referrals Dr. Mcdonnell in 6 weeks Activity Activity: Activity as Tolerated Driving Instructions: No Driving for 1 Week NO SMOKING: NO SMOKING Nothing Inside Vagina: No Douching, No [place], No Tampons Diet Discharge Diet: No Restrictions Symptoms to Report to : Bleeding Excessive, Pain Increased, Fever Over 101 Degrees F, Vaginal Bleeding Increase, Questions/Concerns For Any Problems or Questions: Contact Your Physician RK MCDONNELL DO Apr 02, 2020 14:19
[2020-04-02] MEDS ORDERED: ACHD5005 PO (14:21)
[2020-04-02] MEDS ORDERED: IBUP-844 PO (14:21)
[2020-04-02] MEDS ORDERED: DCS100C PO (14:21)
[2020-04-02] MEDS: IBUPROFEN 600 MG (MOTRIN) TAB PO SCH ×2 (14:24→19:51)
[2020-04-02] MEDS: DOCUSATE SODIUM 100 MG (COLACE) CAP PO SCH (19:51)
[2020-04-03] VITALS: BP 119/62
[2020-04-03] MEDS: IBUPROFEN 600 MG (MOTRIN) TAB PO SCH ×4 (02:35→20:56)
[2020-04-03] MEDS: HYDROcodone/APAP 5 MG/325 MG (LORTAB) TAB PO PRN ×5 (02:37→20:56)
[2020-04-03 02:50] VITALS: BP 110/60
[2020-04-03 05:26] LABS: BASOPHILS % (AUTO) 0 % (0-10); EOSINOPHILS # (AUTO) 0.2 10^3/uL (0.0-0.3); EOSINOPHILS % (AUTO) 2 % (0-10); HEMATOCRIT 31 % (35-52); HEMOGLOBIN 10.3 g/dL (11.5-16.0); LYMPHOCYTES % (AUTO) 12 % (12-44); MEAN CORPUSCULAR HEMOGLOBIN 31 pg (25-34); MEAN CORPUSCULAR HGB CONC 34 g/dL (32-36); MEAN CORPUSCULAR VOLUME 91 fL (80-99); MEAN PLATELET VOLUME 10.7 fL (9.0-12.2); MONOCYTES # (AUTO) 0.6 10^3/uL (0.0-1.0); MONOCYTES % (AUTO) 7 % (0-12); NEUTROPHILS # (AUTO) 6.6 10^3/uL (1.8-7.8); NEUTROPHILS % (AUTO) 79 % (42-75); PLATELET COUNT 170 10^3/uL (130-400); WHITE BLOOD COUNT 8.4 10^3/uL (4.3-11.0)
--- NOTE | 2020-04-03 07:37 | Postpartum Progress Note ---
JC PARRY MED STUDENT 04/03/20 0737: Note Note Day # 1 Subjective: Patient is without complaints. Ambulating, voiding. No BM yet. Tolerating a regular diet without nausea or vomiting. Normal lochia. Pain is well controlled with oral pain medications. . Objective: Physical Exam: General - Alert and oriented, no apparent distress Abdomen - Soft, appropriately tender to palpation, non-distended, fundus firm at umbilicus Extremities - no edema, negative Giuliana's bilaterally Assessment: Post- day # 1, status post vaginal delivery. Recovering well, hemodynamically stable Acute blood loss anemia Plan: Routine care. Encourage breast feeding. Encourage ambulation. Ferrous sulfate supplementation. Plan for discharge today. Vitals - Labs Vital Signs - I&O Vital Signs Date Time Temp Pulse Resp B/P (MAP) Pulse Ox O2 Delivery O2 Flow Rate FiO2 04/03/20 02:50 36.4 82 18 110/60 (77) 98 04/03/20 00:00 36.6 89 18 119/62 (81) 98 04/02/20 19:45 36.5 86 18 117/67 (84) 99 04/02/20 15:35 37.6 89 20 131/60 (83) Room Air 04/02/20 15:05 97 20 109/54 (72) Room Air 04/02/20 14:50 95 20 123/70 (87) Room Air 04/02/20 14:35 85 20 127/58 (81) Room Air 04/02/20 14:27 37.4 85 20 120/65 (83) 100 Room Air 04/02/20 13:22 37.5 93 20 132/83 (99) 100 Room Air 04/02/20 13:05 89 20 110/57 (74) 100 Room Air 04/02/20 12:50 85 20 109/67 (81) 100 Room Air 04/02/20 12:35 101 20 110/68 (82) 100 Room Air 04/02/20 12:25 86 20 105/62 (76) 100 Room Air 04/02/20 12:10 77 20 112/57 (75) 100 Room Air 04/02/20 11:55 93 20 150/68 (95) 100 Room Air 04/02/20 11:45 37.2 75 20 121/76 (91) 100 Room Air 04/02/20 11:05 84 20 129/80 (96) 100 Room Air 04/02/20 10:50 79 20 110/74 (86) 100 Room Air 04/02/20 10:35 77 20 107/67 (80) 100 Room Air 04/02/20 10:20 76 20 105/63 (77) 100 Room Air 04/02/20 10:05 87 20 106/57 (73) 100 Room Air 04/02/20 09:50 37.1 99 20 119/56 (77) 100 Room Air 04/02/20 09:30 75 20 117/68 (84) 100 Room Air 04/02/20 09:20 77 20 114/63 (80) 99 Room Air 04/02/20 09:15 98 20 103/54 (70) 99 Room Air 04/02/20 09:10 98 20 103/54 (70) 99 Room Air 04/02/20 09:05 86 20 106/57 (73) 99 Room Air 04/02/20 09:00 86 20 113/64 (80) 99 Room Air 04/02/20 08:55 94 20 120/59 (79) 99 Room Air 04/02/20 08:50 90 20 118/91 (100) 98 Room Air 04/02/20 08:45 83 20 112/63 (79) 100 Room Air 04/02/20 08:40 90 20 121/70 (87) 100 Room Air 04/02/20 08:35 80 20 121/67 (85) 100 Room Air 04/02/20 08:15 37.0 82 20 132/75 (94) I & O 04/03/20 07:00 Intake Total 3800 ml Balance 3800 ml Labs Laboratory Tests 04/03/20 05:18: White Blood Count 8.4, Red Blood Count 3.37L, Hemoglobin 10.3L, Hematocrit 31L, Mean Corpuscular Volume 91, Mean Corpuscular Hemoglobin 31, Mean Corpuscular Hemoglobin Concent 34, Red Cell Distribution Width 13.3, Platelet Count 170, Mean Platelet Volume 10.7, Immature Granulocyte % (Auto) 0, Neutrophils (%) (Auto) 79H, Lymphocytes (%) (Auto) 12, Monocytes (%) (Auto) 7, Eosinophils (%) (Auto) 2, Basophils (%) (Auto) 0, Neutrophils # (Auto) 6.6, Lymphocytes # (Auto) 1.0, Monocytes # (Auto) 0.6, Eosinophils # (Auto) 0.2, Basophils # (Auto) 0.0, Immature Granulocyte # (Auto) 0.0 Microbiology 04/01/20 Urine Culture - Preliminary, Resulted See Comments RK MCDONNELL DO 04/03/20 0805: Note Note Verification and Attestation of Medical Student E/M Service A medical student performed and documented this service in my presence. I reviewed and verified all information documented by the medical student and made modifications to such information, when appropriate. I personally performed the physical exam and medical decision making. Rk Mcdonnell, Apr 03, 2020,08:05 JC PARRY MED STUDENT Apr 03, 2020 07:37 RK MCDONNELL DO Apr 03, 2020 08:05
[2020-04-03 08:45] VITALS: BP 125/70
[2020-04-03] MEDS: PRENATAL VITAMIN 1 EA TAB PO SCH (08:54)
[2020-04-03] MEDS: DOCUSATE SODIUM 100 MG (COLACE) CAP PO SCH ×2 (08:54→20:55)
[2020-04-03] MEDS ORDERED: DOCUSATE CALCIUM 240 MG (SURFAK) CAP PO SCH (09:00)
[2020-04-03 11:35] VITALS: BP 121/82
--- NOTE | 2020-04-03 13:48 | Anesthesia-Regional Post-Op ---
Regional Patient Condition Mental Status: Alert, Oriented x3 Circulation: Same as Pre-Op Headache: Absent Sensation: Full Recovery Motor Block: Absent Post Op Complications Complications None Follow Up Care/Instructions Patient Instructions None needed. Anesthesia/Patient Condition Patient is doing well, no complaints, stable vital signs, no apparent adverse anesthesia problems. MELANIE ARNOLD DO Apr 03, 2020 13:48
[2020-04-03 17:00] VITALS: BP 129/73
[2020-04-03 21:00] VITALS: BP 116/67
[2020-04-04] MEDS: HYDROcodone/APAP 5 MG/325 MG (LORTAB) TAB PO PRN ×3 (01:05→11:02)
[2020-04-04] MEDS: IBUPROFEN 600 MG (MOTRIN) TAB PO SCH ×2 (02:48→09:43)
[2020-04-04 03:02] VITALS: BP 108/59
[2020-04-04 09:38] VITALS: BP 113/72
[2020-04-04] MEDS: PRENATAL VITAMIN 1 EA TAB PO SCH (09:43)
[2020-04-04] MEDS: DOCUSATE SODIUM 100 MG (COLACE) CAP PO SCH (09:43)
== END 2020-04-04 13:20 | disposition home or self-care (01) | DRG 806 ==
LOC: LDRP 18:31
PROVIDERS: ADMIT Obstetrics & Gynecology; ATTEND Obstetrics & Gynecology
PROC: 10E0XZZ Delivery of Products of Conception, External Approach (ICD-10-PCS; principal; 2020-04-02)
PROC: 0HQ9XZZ Repair Perineum Skin, External Approach (ICD-10-PCS; 2020-04-02)
DX: O70.0 First degree perineal laceration during delivery (principal); D62 Acute posthemorrhagic anemia; Z37.0 Single live birth; Z3A.39 39 weeks gestation of pregnancy; O90.81 Anemia of the puerperium
CPT/HCPCS: 36415; 81000; 85025; 86850; 86900; 86901; 87077; 87088

== ENCOUNTER 2021-07-25 18:16 | Emergency (ER) | payer MEDICAID ==
[~2021-07-25] VITALS: Ht 154.9 cm; Wt 51.9 kg
[~2021-07-25 18:16] MED LIST changes: +DOCU-239 PO; +IBUP-844 PO
[2021-07-25 18:26] VITALS: BP 118/83
--- NOTE | 2021-07-25 18:38 | ED General ---
General Chief Complaint: Allergic Reaction Stated Complaint: ALLERGIC REACTION, EYE IRRITATION Source of Information: Patient Exam Limitations: No Limitations History of Present Illness Date Seen by Provider: Jul 25, 2021 Time Seen by Provider: 18:19 Initial Comments Very pleasant 26-year-old female with past medical history of multiple contact allergies coming in due to concern for allergic reaction. She was cleaning stuff out of the fridge with Clorox wipe, washed her hands really well, but then touched her eyes afterwards and had significant itching and swelling to her eyes. This happens quite frequently to multiple things including different types of dust. Typically does not involve other parts of her skin, she is not short of breath, no wheezing, no vomiting, no abdominal pain, chest pain, or any other concerns. She took Benadryl and was able to come here. She is otherwise denying any other acute complaints Allergies and Home Medications Allergies Coded Allergies: Sulfa (Sulfonamide Antibiotics) (Unverified Allergy, Unknown, RASH,SOB, 04/01/20) Patient Home Medication List Home Medication List Reviewed: Yes Cetirizine HCl (Cetirizine HCl) 10 Mg Tablet, 10 MG PO DAILY, (Reported) Entered as Reported by: KARSTEN TOUSSAINT on 01/13/20 1522 Docusate Sodium (Dok) 100 Mg Capsule, 100 MG PO BID PRN for CONSTIPATION-1ST LINE Prescribed by: RK MCDONNELL on 04/02/20 1421 Hydrocodone Bit/Acetaminophen (HYDROcodone/APAP 5 MG/325 MG TAB) 1 Tab Tab, 1 EA PO Q4H PRN for PAIN-MODERATE (5-7) Prescribed by: RK MCDONNELL on 04/02/20 1421 Ibuprofen (Ibu) 600 Mg Tablet, 600 MG PO Q6H Prescribed by: RK MCDONNELL on 04/02/20 1421 Vit W-Ca,Fe,FA(<1 mg) ( Formula) 1 Each Tablet, 1 EACH PO DAILY, (Reported) Entered as Reported by: MOSHE HAZEL on 01/07/19 171 Review of Systems Review of Systems Constitutional: No fever EENTM: other (Periorbital swelling) Respiratory: no symptoms reported Cardiovascular: no symptoms reported Gastrointestinal: no symptoms reported Genitourinary: no symptoms reported Musculoskeletal: no symptoms reported Skin: no symptoms reported Psychiatric/Neurological: No Symptoms Reported Hematologic/Lymphatic: No Symptoms Reported Immunological/Allergic: see HPI All Other Systems Reviewed Negative Unless Noted: Yes Past Jhrbrmb-Lstorh-Hpogda Hx Patient Social History Tobacco Use?: No Substance use?: No Alcohol Use?: No Pt feels they are or have been: No Seasonal Allergies Seasonal Allergies: Yes Past Medical History Surgeries: Yes (JJ stent placed and removed, wisdom teeth) Tonsillectomy Respiratory: No Cardiac: No (a murmur as an ) Neurological: No Reproductive Disorders: Yes (RLQ pain, CPP) Sexually Transmitted Disease: No Genitourinary: No Kidney Stones Gastrointestinal: No Musculoskeletal: No Endocrine: No HEENT: No Cancer: No Psychosocial: Yes Anxiety, Depression Integumentary: No Blood Disorders: No Physical Exam Vital Signs Capillary Refill : Height, Weight, BMI Height: 5'0.00" Weight: 120lbs. 0.0oz. 54.199756lt; 32.34 BMI Method: General Appearance: No Apparent Distress, WD/WN Eyes: Bilateral Eye PERRL, Bilateral Eye EOMI, Bilateral Eye Other (Periorbital edema, no proptosis, no pain with extraocular movements, normal visual acuity) HEENT: PERRL/EOMI, Normal ENT Inspection, Pharynx Normal Neck: Full Range of Motion, Normal Inspection, Non Tender, Supple Respiratory: Chest Non Tender, Lungs Clear, Normal Breath Sounds, No Accessory Muscle Use, No Respiratory Distress Cardiovascular: Regular Rate, Rhythm, No Edema, Normal Peripheral Pulses Gastrointestinal: Normal Bowel Sounds, Non Tender, Soft Back: Normal Inspection, No CVA Tenderness, No Vertebral Tenderness Extremity: Normal Capillary Refill, Normal Inspection, Normal Range of Motion, Non Tender, No Calf Tenderness, No Pedal Edema Neurologic/Psychiatric: Alert, No Motor/Sensory Deficits, Normal Mood/Affect Skin: Normal Color, Warm/Dry Lymphatic: No Adenopathy Progress/Results/Core Measures Suspected Sepsis SIRS Temperature: Pulse: Respiratory Rate: Blood Pressure / Mean: Results/Orders My Orders Orders - SUBHA PETERS MD Famotidine Tablet (Pepcid Tablet) (07/25/21 18:45) Dexamethasone Oral Soln (Ed) (Decadron I (07/25/21 18:32) Vital Signs/I&O Capillary Refill : Progress Note : Progress Note 26-year-old female with above history coming in due to swelling around her eyes after touching them. ABCs were intact and vitals were stable on presentation. There is only 1 single system involved and clinically she does not have anaphylaxis. She already took Benadryl, gave her Decadron as well as Pepcid. I immediately rinsed her eyes with saline until she felt like the irritation was gone. She had washed her hands with regular soap after touching the Clorox so I think it is unlikely she has significant burn from chemical. I believe the patient is stable for discharge with outpatient follow-up. She was sent home with strict return precautions Departure Impression Primary Impression: Allergic reaction Qualified Codes: T78.40XA - Allergy, unspecified, initial encounter Additional Impression: Periorbital edema of both eyes Disposition: HOME, SELF-CARE Condition: Stable Departure-Patient Inst. Decision time for Depature: 19:00 Referrals: PATI WARNER MD (PCP/Family) Primary Care Physician Patient Instructions: Allergic Reaction ED Add. Discharge Instructions: I would take the Benadryl again tomorrow in the morning. The steroid we gave you is long-acting. I would rinse your eyes with saline as well when you get home and again in the morning. If you begin feeling severely short of breath with wheezing or you have any concerns please come back to the ER Work/School Note: Work Release Form Date Seen in the Emergency Department: Jul 25, 2021 Return to Work: Jul 26, 2021 Restrictions: No Restrictions SUBHA PETERS MD Jul 25, 2021 18:38
[2021-07-25] MEDS ORDERED: FAMOTIDINE 20 MG (PEPCID) TABLET PO ONE (18:45)
== END 2021-07-25 19:02 | disposition home or self-care (01) ==
LOC: EDUNIT# 18:16 → ER FS 18:18
DX: T78.40XA Allergy, unspecified, initial encounter (principal); H05.223 Edema of bilateral orbit
CPT/HCPCS: 99283

== ENCOUNTER → 2021-11-11 | Outpatient (CLI) | payer MEDICAID ==
--- NOTE | 2021-11-11 10:55 | Diagnostic Imaging Report ---
CLINICAL INDICATION: Patient has syncope. EXAM: MRI of the brain performed without IV contrast. Sequences include sagittal T1, axial T2, axial flair, axial gradient echo, DWI, ADC map, and axial T1. COMPARISON: None. FINDINGS: There is no evidence of acute cerebral infarct, intracranial hemorrhage, or gross mass effect. The brain parenchymal volume appears appropriate for patient's age. There is normal sheets-white matter distinction. There is no significant midline shift or herniation. The pituitary gland, sella, and suprasellar regions are unremarkable as visualized. The [place] vascular structures show no gross abnormality as visualized. There is no evidence of hydrocephalus. The basal cisterns are unremarkable. The skull, extracranial soft tissue, and orbits are unremarkable. The paranasal sinuses are unremarkable. The temporal bones show no significant abnormality. IMPRESSION: Unremarkable MRI of the brain. Dictated by: Dictated on workstation # [id number]
== END ==
LOC: RAD 09:33
PROVIDERS: ATTEND Nurse Practitioner Family
DX: R55 Syncope and collapse (principal); H53.8 Other visual disturbances; R20.2 Paresthesia of skin
CPT/HCPCS: 70551

== ENCOUNTER 2021-12-13 17:23 | Emergency (ER) | payer MEDICAID ==
[2021-12-13] MEDS ORDERED: PRD50T PO (17:42)
--- NOTE | 2021-12-13 17:43 | ED EENT ---
History of Present Illness General Chief Complaint: Eye Problems Stated Complaint: L EYE IRRITATION Nursing Triage Note: Patient presents to the ED with c/o redness, swelling, and irriation in eyes. States, "I am allergic to something I just don't know what." Reports she was rubbing her eyes when they began to become more irritated and swell. Reports she has taken 50mg of benadryl and flushed her eyes with saline. Source: patient Exam Limitations: no limitations History of Present Illness Date Seen by Provider: Dec 13, 2021 Time Seen by Provider: 17:30 Initial Comments Patient presents for bilateral eye irritation and redness, watering. She states symptoms started yesterday and have been progressive. She has had the symptoms several times in the past with allergies. She took 50 mg of Benadryl and flushed her eyes with saline which has not really helped. Last time she was here she got steroid medicines which seem to help her somewhat. She uses glasses but no contacts. Allergies and Home Medications Allergies Coded Allergies: Sulfa (Sulfonamide Antibiotics) (Unverified Allergy, Unknown, RASH,SOB, 04/01/20) Patient Home Medication List Home Medication List Reviewed: Yes Cetirizine HCl (Cetirizine HCl) 10 Mg Tablet, 10 MG PO DAILY, (Reported) Entered as Reported by: KARSTEN TOUSSAINT on 01/13/20 152 Docusate Sodium (Dok) 100 Mg Capsule, 100 MG PO BID PRN for CONSTIPATION-1ST LINE Prescribed by: RK MCDONNELL on 04/02/20 1421 Hydrocodone Bit/Acetaminophen (HYDROcodone/APAP 5 MG/325 MG TAB) 1 Tab Tab, 1 EA PO Q4H PRN for PAIN-MODERATE (5-7) Prescribed by: RK MCDONNELL on 04/02/20 1421 Ibuprofen (Ibu) 600 Mg Tablet, 600 MG PO Q6H Prescribed by: RK MCDONNELL on 04/02/20 1421 Prednisone (Prednisone) 50 Mg Tab, 50 MG PO DAILY Prescribed by: FILOMENA LIVINGSTON MD on 12/13/21 174 Vit W-Ca,Fe,FA(<1 mg) ( Formula) 1 Each Tablet, 1 EACH PO DAILY, (Reported) Entered as Reported by: MOSHE HAZEL on 01/07/19 1711 Review of Systems Review of Systems Constitutional: no symptoms reported Eyes: Drainage, Pain, Other (Redness) Ears: No Symptoms Reported Nose: no symptoms reported Mouth: no symptoms reported Throat: no symptoms reported Respiratory: no symptoms reported Cardiovascular: no symptoms reported Gastrointestinal: no symptoms reported Musculoskeletal: no symptoms reported Skin: no symptoms reported Neurological: No Symptoms Reported Hematologic/Lymphatic: No Symptoms Reported Immunological/Allergic: no symptoms reported Past Issfvfs-Foxjsv-Fxbnff Hx Patient Social History Tobacco Use?: No Use of E-Cig and/or Vaping dev: No Substance use?: No Alcohol Use?: No Seasonal Allergies Seasonal Allergies: Yes Past Medical History Surgeries: Yes (JJ stent placed and removed, wisdom teeth) Tonsillectomy Respiratory: No Cardiac: No (a murmur as an infant) Neurological: No Reproductive Disorders: Yes (RLQ pain, CPP) Sexually Transmitted Disease: No Genitourinary: No Kidney Stones Gastrointestinal: No Musculoskeletal: No Endocrine: No HEENT: No Cancer: No Psychosocial: Yes Anxiety, Depression Integumentary: No Blood Disorders: No Physical Exam Vital Signs Vital Signs - First Documented 12/13/21 17:33 Temp 35.8 Pulse 87 Resp 16 B/P (MAP) 118/79 (92) Pulse Ox 99 O2 Delivery Room Air Height, Weight, BMI Height: 5'0.00" Weight: 120lbs. 0.0oz. 54.313243gs; 21.00 BMI Method: General Appearance: WD/WN, no apparent distress Eyes: bilateral eye PERRL, bilateral eye EOMI, bilateral eye other (Conjunctival injection bilaterally. Clear watery drainage.) Neck: non-tender, supple Cardiovascular: regular rate, rhythm, no edema, no gallop, no JVD, no murmur Respiratory: chest non-tender, lungs clear, normal breath sounds, no respiratory distress, no accessory muscle use Gastrointestinal: normal bowel sounds, non tender, soft, no organomegaly Skin: normal color, warm/dry Progress/Results/Core Measures Results/Orders Vital Signs/I&O 12/13/21 12/13/21 17:33 17:44 Temp 35.8 35.8 Pulse 87 87 Resp 16 16 B/P (MAP) 118/79 (92) 118/79 Pulse Ox 99 99 O2 Delivery Room Air Room Air Blood Pressure Mean: 92 Departure Communication (Admissions) Symptoms consistent with bilateral allergic conjunctivitis. No evidence for acute bacterial inflammation as there is no purulence. No evidence for injury, uveitis or deeper space infection. Impression Primary Impression: Allergic conjunctivitis Qualified Codes: H10.13 - Acute atopic conjunctivitis, bilateral Disposition: 01 HOME, SELF-CARE Condition: Stable Departure-Patient Inst. Referrals: ANJEL FRAGA APRN (PCP/Family) Primary Care Physician Patient Instructions: Conjunctivitis ([place]) (DC) Add. Discharge Instructions: Take the prednisone daily as prescribed. I recommend you use allergy eyedrops along with artificial tears to help with the dryness. All discharge instructions reviewed with patient and/or family. Voiced understanding. Scripts Prednisone (Prednisone) 50 Mg Tab 50 MG PO DAILY for 3 Days, #3 TAB Prov: FILOMENA LIVINGSTON DO 12/13/21 FILOMENA LIVINGSTON DO Dec 13, 2021 17:42
[2021-12-13 17:44] VITALS: BP 118/79
== END 2021-12-13 17:44 | disposition home or self-care (01) ==
LOC: EDUNIT# 17:23 → ER FS 17:25
DX: H10.13 Acute atopic conjunctivitis, bilateral (principal)
CPT/HCPCS: 99281

== ENCOUNTER 2022-02-04 13:11 | Outpatient (RCR) | payer MEDICAID ==
[~2022-02-04 13:11] MED LIST changes: +PRD50T PO
[2022-02-04 14:07] LABS: BASOPHILS % (AUTO) 1 % (0-10); EOSINOPHILS # (AUTO) 0.1 10^3/uL (0.0-0.3); EOSINOPHILS % (AUTO) 4 % (0-10); HEMATOCRIT 40 % (35-52); HEMOGLOBIN 13.3 g/dL (11.5-16.0); LYMPHOCYTES # (AUTO) 0.5 10^3/uL (1.0-4.0); LYMPHOCYTES % (AUTO) 14 % (12-44); MEAN CORPUSCULAR HEMOGLOBIN 30 pg (25-34); MEAN CORPUSCULAR HGB CONC 34 g/dL (32-36); MEAN CORPUSCULAR VOLUME 90 fL (80-99); MEAN PLATELET VOLUME 10.1 fL (9.0-12.2); MONOCYTES # (AUTO) 0.3 10^3/uL (0.0-1.0); MONOCYTES % (AUTO) 8 % (0-12); NEUTROPHILS # (AUTO) 2.4 10^3/uL (1.8-7.8); NEUTROPHILS % (AUTO) 73 % (42-75); PLATELET COUNT 228 10^3/uL (130-400); WHITE BLOOD COUNT 3.4 10^3/uL (4.3-11.0)
== END 2022-02-08 | disposition home or self-care (01) ==
LOC: ONC 13:11
PROVIDERS: ATTEND Internal Medicine Hematology & Oncology
DX: D72.810 Lymphocytopenia (principal)
CPT/HCPCS: 82784 ×3; 85004; 85025; 85048; 86359; 86360; 87389; G0463; 36415; 86353; 99204

== ENCOUNTER → 2022-06-17 | Outpatient (CLI) | payer SELFPAY ==
[2022-06-17 13:05] LABS: ABSOLUTE RETIC # 76 10e9/uL (24-90); BASOPHILS % (AUTO) 1 % (0-10); EOSINOPHILS # (AUTO) 0.2 10^3/uL (0.0-0.3); EOSINOPHILS % (AUTO) 8 % (0-10); HEMATOCRIT 37 % (35-52); HEMOGLOBIN 12.6 g/dL (11.5-16.0); LYMPHOCYTES # (AUTO) 0.5 10^3/uL (1.0-4.0); LYMPHOCYTES % (AUTO) 17 % (12-44); MEAN CORPUSCULAR HEMOGLOBIN 31 pg (25-34); MEAN CORPUSCULAR HGB CONC 34 g/dL (32-36); MEAN CORPUSCULAR VOLUME 90 fL (80-99); MEAN PLATELET VOLUME 10.4 fL (9.0-12.2); MONOCYTES # (AUTO) 0.3 10^3/uL (0.0-1.0); MONOCYTES % (AUTO) 10 % (0-12); NEUTROPHILS # (AUTO) 1.8 10^3/uL (1.8-7.8); NEUTROPHILS % (AUTO) 64 % (42-75); PLATELET COUNT 221 10^3/uL (130-400); RETICULOCYTE % 1.87 % (0.50-2.40); WHITE BLOOD COUNT 2.8 10^3/uL (4.3-11.0)
[2022-06-17 13:08] LABS: ALBUMIN 4.1 GM/DL (3.2-4.5); POTASSIUM 4.2 MMOL/L (3.6-5.0)
[2022-06-17 13:09] LABS: CALCIUM 9.2 MG/DL (8.5-10.1)
[2022-06-17 13:11] LABS: TOTAL PROTEIN 6.6 GM/DL (6.4-8.2)
[2022-06-17 13:12] LABS: BILIRUBIN,TOTAL 0.6 MG/DL (0.1-1.0)
[2022-06-17 13:14] LABS: CREATININE SERUM 0.78 MG/DL (0.60-1.30)
[2022-06-17 13:51] LABS: BILIRUBIN,URINE NEGATIVE (NEGATIVE); CLARITY,URINE CLEAR; COLOR,URINE YELLOW; GLUCOSE, URINE (UA) NEGATIVE (NEGATIVE); KETONES,URINE NEGATIVE (NEGATIVE); LEUKOCYTE ESTERASE ,URINE NEGATIVE (NEGATIVE); NITRITE,URINE NEGATIVE (NEGATIVE); PROTEIN,URINE TRACE (NEGATIVE)
[2022-06-17 13:59] LABS: RBC,URINE 25-50 /HPF
[2022-06-17 14:00] LABS: BACTERIA,URINE NEGATIVE /HPF
[2022-06-17 14:40] LABS: BASOPHILS % (MANUAL) 1 %; EOSINOPHILS % (MANUAL) 6 %; LYMPHOCYTES % (MANUAL) 11 %; MONOCYTES % (MANUAL) 7 %; NEUTROPHILS % (MANUAL) 75 %; RBC MORPH NORMAL
--- NOTE | 2022-06-17 18:04 | Diagnostic Imaging Report ---
EXAMINATION: Bilateral hands, two views. HISTORY: Arthritis. COMPARISON: None available. FINDINGS: The alignment of both hands is normal. No fracture is seen in either hand. Joint spaces are normal bilaterally. No erosions are seen. IMPRESSION: 1. Normal bilateral hands. Dictated by: Dictated on workstation # [id number]
--- NOTE | 2022-06-17 18:07 | Diagnostic Imaging Report ---
INDICATION: Bilateral foot pain 2 views of the left foot and 2 views of the right foot are obtained. Joint spaces are well-maintained. There is no fracture or dislocation. IMPRESSION: Negative left and right foot Dictated by: Dictated on workstation # [id number]
== END ==
LOC: LAB 12:26
PROVIDERS: ATTEND Internal Medicine Rheumatology
DX: D80.2 Selective deficiency of immunoglobulin A [IgA] (principal); M19.242 Secondary osteoarthritis, left hand; M19.241 Secondary osteoarthritis, right hand; M79.672 Pain in left foot; M79.671 Pain in right foot
CPT/HCPCS: 36415; 80053; 81000; 82570; 84156; 85007; 85027; 85045; 85055; 86038; 86160; 86200; 86235; 86431

== ENCOUNTER 2022-08-04 08:00 | Outpatient (RCR) | payer MEDICAID ==
[2022-08-21 09:26] LABS: MISC LAB TEST & RESULT SCANNED REPORT
== END 2022-08-08 ==
LOC: LAB 08:00
PROVIDERS: ATTEND Student in an Organized Health Care Education/Training Program
DX: D72.810 Lymphocytopenia (principal)
CPT/HCPCS: 36415; 82784; 82787; 85652; 86141